=== PATIENT | male | born 1950 | race African-American/Black ===

== ENCOUNTER 2021-06-12 20:30 | Inpatient (IN) | payer MEDICARE, SELFPAY ==
--- NOTE | ~2021-06-12 | XR_ITS ---
EXAMINATION: XR chest 1V portable INDICATION: Shortness of breath TECHNIQUE: Portable AP chest at 2120 hours COMPARISON: 08/28/2003 FINDINGS: There is a large bore right internal jugular catheter with its tip ending in the right atri um. Cardiomegaly is noted. There is a mild diffuse interstitial pattern. No pleural effusion or pneum othorax is identified. A dual-lead cardiac pacemaker of the left chest wall ends with leads in expect ed locations. IMPRESSION: 1. Cardiomegaly with mild pulmonary edema. Reviewed, dictated and finalized at location [facility]. [employer]
[2021-06-12 20:28] VITALS: BP 116/63; PULSE 86; RESP 16; TEMP 36.4; O2SAT 100
--- NOTE | 2021-06-12 21:15 | ECG_ITS ---
Measurements Intervals [place] Rate: 81 P: 55 MT: 237 QRS: -13 QRSD: 133 T: 178 QT: 438 QTc: 509 Interpretive Statements SINUS RHYTHM WITH FIRST DEGREE AV BLOCK FREQUENT VENTRICULAR PREMATURE COMPLEXES LEFT BUNDLE BRANCH BLOCK ABNORMAL ECG Electronically Signed On 06-13-2021 6:20:33 CIRCULAR SAW OPERATOR by Keshawn Felix D.O.
[2021-06-12 21:40] VITALS: BP 122/64; PULSE 81; RESP 19; O2SAT 96
--- NOTE | 2021-06-12 21:41 | PC.NURSE ---
unable to gain access or draw labs, awaiting general house worker for assistance. provider aware.
[2021-06-12 21:55] VITALS: PULSE 81
[2021-06-12 21:55] LABS: Glucose Point of Care > 500 mg/dl (65-105)
--- NOTE | 2021-06-12 21:58 | PC.NURSE ---
pt not sure of doses when it comes to his medications. pharmacy is closed, pt has no med list with him.
--- NOTE | 2021-06-12 22:37 | ED.GENADULT ---
HPI - General Adult General Chief complaint: Weakness Stated complaint: gen weakness, anemia Time Seen by Provider: 06/12/21 20:47 History of Present Illness HPI narrative: Patient is a 71-year-old gentleman who presents the emergency department with chief complaint of generalized weakness. 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 Patient states that they checked his blood counts told him it was low and he was seen at [facility] yesterday they favio blood work on him and discharged him home. The patient states that today his blood sugars were running high and he is still continued to feel weak. The patient denies chest pain does report that he had some shortness of breath. Related Data Home Medications Medication Instructions Recorded Confirmed amitriptyline 06/12/21 atorvastatin 06/12/21 carvedilol 06/12/21 finasteride mg 06/12/21 furosemide 06/12/21 gabapentin 06/12/21 hydrocodone-acetaminophen 06/12/21 insulin glargine [Lantus U-100 SUBCUT 06/12/21 Insulin] insulin lispro [Humalog KwikPen SUBCUT 06/12/21 Insulin] lisinopril 06/12/21 pantoprazole PO 06/12/21 tamsulosin mg PO 06/12/21 06/12/21 Allergies Allergy/AdvReac Type Severity Reaction Status Date / Time codeine Allergy Unknown Unknown Verified 06/12/21 20:32 Contrast Media Allergy Unknown IVP DYE Uncoded 04/12/09 06:15 CAUSES HIVES AND NAUSEA Review of Systems Review of Systems: A 10 system review of systems was completed on the patient and is negative except for what is stated in the HPI. Nursing and ancillary documentation was reviewed. [facility] Family History Family History Other Diabetes mellitus Hypertension Social History Social History Alcohol intake: current Exam Narrative: GENERAL: Well-appearing, well-nourished, and in no acute distress. HEAD: Normocephalic, atraumatic. EYES: PERRLA and EOMI. ENT: Nares clear, no rhinorrhea or epistaxis. Mucous membranes moist. NECK: Supple. CHEST: Clear to auscultation. No respiratory distress. HEART: Regular rate and rhythm. No murmur heard. Normal peripheral pulses. ABDOMEN: Soft, nontender, nondistended, normal active bowel sounds. EXTREMITIES: Normal range of motion. No edema. SKIN: Warm, dry, no rash. NEURO: No focal deficits. Alert and oriented x3. PSYCH: Normal mood and affect. Course Vital Signs Vital signs: Vital Signs Temperature 36.4 C 06/12/21 20:28 Pulse Rate 86 06/12/21 20:28 Respiratory Rate 16 06/12/21 20:28 Blood Pressure 116/63 06/12/21 20:28 Pulse Oximetry 100 06/12/21 20:28 Temperature 36.4 C 06/12/21 20:28 Pulse Rate 79 06/12/21 23:27 Respiratory Rate 20 06/12/21 23:27 Blood Pressure 107/61 06/12/21 23:27 Pulse Oximetry 98 06/12/21 23:27 Medical Decision Making Vital Signs Vital Signs: Vital Signs Temperature 36.4 C 06/12/21 20:28 Pulse Rate 86 06/12/21 20:28 Respiratory Rate 16 06/12/21 20:28 Blood Pressure 116/63 06/12/21 20:28 Pulse Oximetry 100 06/12/21 20:28 Temperature 36.4 C 06/12/21 20:28 Pulse Rate 79 06/12/21 23:27 Respiratory Rate 20 06/12/21 23:27 Blood Pressure 107/61 06/12/21 23:27 Pulse Oximetry 98 06/12/21 23:27 Lab Data Result diagrams: 06/12/21 22:30 06/12/21 22:30 Labs: Lab Results 06/12/21 06/12/21 06/12/21 Range/Units 21:50 22:30 22:30 WBC 4.6 (4.5-10.0) K/mm3 RBC 2.59 L (4.6-6.20) M/mm3 Hgb 8.2 L (14.0-18.0) g/dL Hct 26.3 L (42.0-52.0) % MCV 101.5 H (80-100) fl MCH 31.7 (26-34) pg MCHC 31.2 L (32-36) g/dl RDW 13.5 (11.5-14.5) % Plt Count 158 (150-375) k/mm3 MPV 10.9 H (7.4-10.4) fl Immature Gran % (Auto) 0.2 (
[2021-06-12 22:46] LABS: Basophils Percent Auto 0.9 % (0.2-1.2); Eosinophils Absolute Auto 0.3 K/mm3 (0-0.3); Eosinophils Percent Auto 5.9 % (0-4.4); Hematocrit 26.3 % (42.0-52.0); Hemoglobin 8.2 g/dL (14.0-18.0); Immature Granulocyte Absolute 0.01 K/mm3 (0.00-0.031); Immature Granulocyte Percent A 0.2 % (0-0.5); Lymphocytes Percent Auto 17.6 % (18.3-44.2); Mean Corpuscular HGB Conc 31.2 g/dl (32-36); Mean Corpuscular Hemoglobin 31.7 pg (26-34); Mean Corpuscular Volume 101.5 fl (80-100); Mean Platelet Volume 10.9 fl (7.4-10.4); Monocytes Absolute Auto 0.3 K/mm3 (0.1-0.6); Monocytes Percent Auto 5.7 % (2.6-8.5); Neutrophils Absolute Auto 3.2 K/mm3 (1.3-6.7); Neutrophils Percent Auto 69.7 % (45.5-73.1); Platelet Count Result 158 k/mm3 (150-375); Red Blood Count 2.59 M/mm3 (4.6-6.20); Red Cell Distribution Width 13.5 % (11.5-14.5); White Blood Count 4.6 K/mm3 (4.5-10.0)
[2021-06-12 23:06] LABS: Alanine Aminotransferase 28 U/L (4-50); Albumin Level 3.7 g/dL (3.5-5.1); Alkaline Phosphatase 262 U/L (38-126); Anion Gap 15 mmol/L (8-16); Aspartate Amino Transferase 33 U/L (17-59); Beta-Hydroxybutyrate/Acetoacetate 0.06 mmol/L (0.02-0.27); Bilirubin,Total 0.3 mg/dL (0.2-1.3); Blood Urea Nitrogen 38 mg/dL (9-20); Calcium 7.3 mg/dL (8.4-10.2); Carbon Dioxide 27 mmol/L (22-30); Chloride 90 mmol/L (98-107); Estimated CRCL calculation 12 ml/min; Estimated Glomerular Filt Rate 14; Potassium 4.2 mmol/L (3.4-5.0); Sodium 132 mmol/L (137-145)
[2021-06-12 23:10] LABS: Glucose 627 mg/dL (65-110)
[2021-06-12] MEDS: INSULIN HUMAN REGULAR (*BKC) 100 UNITS/ML 10 UNITS SUB-Q (23:12)
[2021-06-12 23:27] VITALS: BP 107/61; PULSE 79; RESP 20; O2SAT 98
[2021-06-12 23:41] LABS: NT Pro B Type Natriuretic Pept > 35000 pg/mL (5-100); Troponin I 0.012 ng/mL (0.000-0.034)
[2021-06-13] VITALS (11 sets, daily range): BP systolic 92–118; BP diastolic 54–74; PULSE 67–81; RESP 16–25; TEMP 36.2–36.4; O2SAT 97–100; BMI 28.8
[2021-06-13 01:09] LABS: SARS-CoV-2 RNA PCR Negative
[2021-06-13 01:31] LABS: Hematocrit 23.9 % (42.0-52.0); Hemoglobin 7.5 g/dL (14.0-18.0)
[2021-06-13 05:58] LABS: Glucose Point of Care 191 mg/dl (65-105)
--- NOTE | 2021-06-13 06:01 | PC.NURSE ---
Hospitalist paged in regards to BP MAPs status and AM blood sugar. Dr. Zimmerman TORB 250 NS Bolus at this time.
[2021-06-13] MEDS: SODIUM CHLORIDE 0.9% IV 250 ML 100 ML IV CONT (06:07)
[2021-06-13 06:16] LABS: Hematocrit 27.7 % (42.0-52.0); Hemoglobin 8.7 g/dL (14.0-18.0)
--- NOTE | 2021-06-13 07:19 | PC.NURSE ---
Pt resting at this time. Aware he is waiting for a bed assignment. No complaints at this time.
--- NOTE | 2021-06-13 07:56 | PC.NURSE ---
Pt states he is a , , sunday. Last dialysis sunday06/11/2021. Pt has no complaints at this time.
[2021-06-13 08:44] LABS: Glucose Point of Care 50 mg/dl (65-105)
[2021-06-13] MEDS: DEXTROSE 50% 25 GM/50 ML SYRINGE IV PUSH ×3 (08:48→20:00)
--- NOTE | 2021-06-13 08:51 | PC.NURSE ---
Pt treated per hypoglycemia protocol. Breakfast tray ordered.
[2021-06-13 09:45] LABS: Glucose Point of Care 76 mg/dl (65-105)
--- NOTE | 2021-06-13 09:51 | PC.NURSE ---
Pt alert and oriented x 3, ate 75% off breakfast. No requests at this time.
--- NOTE | 2021-06-13 13:30 | PM.IMHP ---
H&P: HPI History of Present Illness Date/Time: 06/13/21 13:30 Chief Complaint: Weakness. Narrative: This is a 71-year-old male with insulin dependent diabetes, end-stage renal disease on hemodialysis, and hypertension who presented to the emergency department via EMS from home late last evening for evaluation of weakness. He has not felt well for several days with generalized malaise, weakness, and dysuria. Per patient report he had labs drawn while at dialysis yesterday and he was instructed to go to the emergency department due to concerns for anemia. Patient reports that they did blood work in the ER at [facility] and he was discharged home, apparently not requiring a transfusion. Throughout the day yesterday he noticed that his glucose was running above 400 and due to continued weakness he came in for evaluation. Random glucose on arrival last evening was 627 and he was given 10 units of regular insulin at that time. It does not look as though he received his basal insulin last night however this morning his glucose was 191. After breakfast he became hypoglycemic with a glucose of 50 and he has had intermittent episodes of hypoglycemia since that time despite eating breakfast and lunch. He continues to feel relatively weak with dysuria but he has no other specific complaints. He denies fever, chills, sweats, headache, neck ache, sinus congestion, sore throat, chest pain, shortness of breath, cough, nausea, vomiting, and diarrhea. Review of Systems Review of Systems: Twelve systems were reviewed and are negative except for as per HPI. [facility] Past Medical History Medical History (Updated 06/13/21 @ 21:56 by Maddie Huffman PA-C) Benign prostatic hyperplasia Chronic anemia Chronic pancreatitis End-stage renal disease on hemodialysis Dialysis days are Sunday, , Sunday. Gastric varices Hyperlipidemia Hypertension Insulin dependent type 2 diabetes mellitus Surgical History Surgical History (Updated 06/13/21 @ 21:50 by Maddie Huffman PA-C) History of back surgery History of laparoscopic cholecystectomy History of sinus surgery Family History Family History Other Diabetes mellitus Hypertension Social History Social History (Updated 06/13/21 @ 21:51 by Maddie Huffman PA-C) Social History: Resides in [place]. He has a helper come to the house 5 days a week. Former smoker. He drink heavily in the past but has not had alcohol for several years. No illicit drug use. Code status: Full code. Meds Home Medications and Allergies Home Medications Medication Instructions Recorded Confirmed Type amitriptyline 25 mg PO DAILY 06/12/21 06/13/21 History atorvastatin 40 mg PO DAILY 06/12/21 06/13/21 History carvedilol 12.5 mg PO DAILY 06/12/21 06/13/21 History finasteride 5 mg PO DAILY 06/12/21 06/13/21 History furosemide 40 mg PO DAILY 06/12/21 06/13/21 History gabapentin 300 mg PO TID 06/12/21 06/13/21 History hydrocodone-acetaminophen 7.5 tablet PO Q6H 06/12/21 06/13/21 History insulin glargine [Lantus U-100 See Rx Instructions .ROUTE .COMPLEX 06/12/21 06/13/21 History Insulin] insulin lispro [Humalog KwikPen See Rx Instructions .ROUTE .COMPLEX 06/12/21 06/13/21 History Insulin] pantoprazole 40 mg PO DAILY 06/12/21 06/13/21 History tamsulosin 0.4 mg PO DAILY 06/12/21 06/13/21 History lisinopril 40 mg PO DAILY 06/13/21 06/13/21 History Allergies Allergy/AdvReac Type Severity Reaction Status Date / Time codeine Allergy Unknown Unknown Verified 06/13/21 05:48 Contrast Media Allergy Unknown IVP DYE Uncoded 06/13/21 05:48 CAUSES HIVES AND NAUSEA Vital Signs Vital Signs - 24 hr 06/12/21 21:40 06/12/21 21:55 06/12/21 23:27 Pulse Rate 81 81 79 Respiratory Rate 19 20 Blood Pressure 122/64 107/61 Pulse Oximetry 96 98 06/13/21 00:01 06/13/21 01:10 06/13/21 02:01 Pulse Rate 77 76 78 Respiratory
[2021-06-13 14:46] LABS: Glucose Point of Care 81 mg/dl (65-105)
--- NOTE | 2021-06-13 15:09 | PC.NURSE ---
CBC rejected by Lab, alteration worker called
--- NOTE | 2021-06-13 16:43 | PC.NURSE ---
ambualted to bathroom with standby assist of 1, gait steady
[2021-06-13 18:42] LABS: Glucose Point of Care 48 mg/dl (65-105)
--- NOTE | 2021-06-13 18:54 | PC.NURSE ---
1838 BS 48, dextrose given and tray, pt A?O x 4
[2021-06-13 19:09] LABS: Glucose Point of Care 53 mg/dl (65-105)
[2021-06-13] MEDS: GLUCOSE ORAL GEL 15 GM OF GLUCSE IN 37.5 GM TUBE PO (19:14)
[2021-06-13 19:48] LABS: Glucose Point of Care 41 mg/dl (65-105)
[2021-06-13] MEDS: DEXTROSE 10% 500 ML 85 ML (20:10)
[2021-06-13 21:13] LABS: Glucose Point of Care 275 mg/dl (65-105)
--- NOTE | 2021-06-13 21:33 | PC.NURSE ---
2110 D10 stopped BS 275
--- NOTE | 2021-06-13 21:36 | PC.NURSE ---
2029 pt refused any more lab draws at this time
--- NOTE | 2021-06-13 22:11 | ADMGEN ---
This patient, Gui Stahl, was admitted to 2 Medical Room 240-. Patient/family oriented to hospital policies and general routines including ID bracelet, bed and alarms, visiting hours, pain management, procedures, bathroom and other care routines, personal items, smoking policy, room service/diet, and visiting hours. Information on how to activate the Rapid Response Team has been discussed. Patient/Family are encouraged to report perceived risks to care and to ask questions if they do not understand what they are told or what they should do.
[2021-06-13 22:16] LABS: Hemoglobin A1C 12.4 % (<5.7)
[2021-06-13 23:23] LABS: Glucose Point of Care 462 mg/dl (65-105)
[2021-06-13] MEDS: INSULIN ASPART (*BKC) 100 UNITS/ML 10 UNITS SUB-Q (23:23)
[2021-06-14] VITALS (9 sets, daily range): BP systolic 104–105; BP diastolic 57–58; PULSE 75–84; RESP 16–18; TEMP 36.4–36.6; O2SAT 97–100
[2021-06-14 01:15] LABS: Add Urine Microscopic? YES; Appearance Urine Turbid (Clear); Bacteria Urine Trace /hpf; Bilirubin Urine Negative (Negative); Blood Urine 3+ (Negative); Budding Yeast Urine Present /hpf; Color Urine Yellow (Yellow); Glucose Urine UA 3+ mg/dL (Negative); Ketones Urine Negative (Negative); Leukocyte Esterase Ur 3+ LEU/UL (Negative); Nitrate Urine Negative (Negative); Protein Urine 2+ mg/dL (Negative); RBC Urine >75 /hpf (0-2); Specific Grav Ur 1.015 (1.001-1.035); Squamous Epithelial Cell Urine Moderate /hpf (Few); Urobilinogen Urine Negative mg/dL (<2.0); WBC Clumps Urine Present /HPF; WBC Urine >75 /hpf
[2021-06-14 02:41] LABS: Glucose Point of Care > 500 mg/dl (65-105)
--- NOTE | 2021-06-14 02:42 | PC.NURSE ---
Dr Zimmerman notified POC accucheck meter reads 522. Order received for 12u novalog, provider does not want lab drawn at this time.
[2021-06-14] MEDS: INSULIN ASPART (*BKC) 100 UNITS/ML 12 UNITS SUB-Q (02:52)
--- NOTE | 2021-06-14 05:10 | PC.NURSE ---
Pt requested to leave hospital immediately. Dr Zimmerman notified and AMA for printed. Pt was again informed he would be leaving AM and he would be responsible for any negative effects as a result of his decision. Pt now states he will wait until he speaks with a doctor before making decision to sign out.
[2021-06-14 05:33] LABS: Glucose Point of Care 219 mg/dl (65-105)
[2021-06-14 08:50] LABS: Glucose Point of Care 86 mg/dl (65-105)
--- NOTE | 2021-06-14 11:02 | PM.IMPN ---
Progress Note: A&P Assessment and Plan (1) Hypoglycemia: Code(s): E16.2 - Hypoglycemia, unspecified Status: Resolved Assessment and Plan: Patient initially came in with a random glucose of over 600 for which he was given subcutaneous insulin, 10 units. Watching patients sugars today @80. (2) Insulin dependent type 2 diabetes mellitus: Code(s): E11.9 - Type 2 diabetes mellitus without complications; Z79.4 - regional intermodal truck driver (current) use of insulin Status: Acute Assessment and Plan: Pt home insulin stopped. Pt is on moderate sliding scale insulin, Accu-Cheks, and hypoglycemic protocol. Adjust insulin dose on dischrage, DM educator consulted. (3) End-stage renal disease on hemodialysis: Code(s): N18.6 - End stage renal disease; Z99.2 - Dependence on renal dialysis Status: Acute Assessment and Plan: Nephrology consulted as patient is due for dialysis today (4) Hypertension: Code(s): I10 - Essential (primary) hypertension Status: Acute Assessment and Plan: Blood pressures were reviewed and they are stable. Antihypertensives will be reviewed and resumed as appropriate. (5) Chronic anemia: Code(s): D64.9 - Anemia, unspecified Status: Acute Assessment and Plan: Hemoglobin greater than 8 without symptomatic anemia. Monitor. (6) Benign prostatic hyperplasia: Code(s): N40.0 - Benign prostatic hyperplasia without lower urinary tract symptoms Status: Acute Assessment and Plan: No acute issues. Continue tamsulosin. (7) Generalized weakness: Code(s): R53.1 - Weakness Status: Acute Assessment and Plan: May very well be related to severe fluctuations in glucose. Pt is unsure of his home insulin. But states he has a home carer who helps him with his DM. His HBaic is 12 however. BC and UC are pending. Troponin was unremarkable on admission. Initiate fall precautions. PT/ OT consulted. Subjective Date/time seen: 06/14/21 11:02 Interval history: 71-year-old male with insulin dependent diabetes, end-stage renal disease on hemodialysis, and hypertension who presented to the emergency department via EMS from home late last evening for evaluation of weakness. Pt admitted for elevated blood sugars of 600 today sugars are better. Pt awaiting to see nephrology and needs dialysis prior to DC. Review of Systems Review of Systems: All systems reviewed & are unremarkable except as noted in HPI and below Exam Const: General: tired appearing and other (chronically ill appearing ); No in distress Nutritional Appearance: overweight Orientation/consciousness: oriented to person HENMT: Head: normal to inspection Resp: Effort & Inspection: no respiratory distress Auscultation: no rhonchi and no wheezes Cardio: Rate: regular rate Rhythm: regular rhythm GI: Inspection: normal to inspection GI Palp: No abdominal tenderness, No Guarding due to palpation present (GI) and No Hepatomegaly present Auscultation: normal bowel sounds Neuro: General: oriented to person Objective Data Vital Signs Vital Signs: Vital Signs - 24 hr 06/13/21 21:54 06/13/21 23:09 06/14/21 00:00 Temperature 36.2 C L 36.4 C Pulse Rate 81 80 Respiratory Rate 18 Blood Pressure 118/58 L Pulse Oximetry 100 06/14/21 04:00 06/14/21 05:27 Temperature 36.4 C Pulse Rate 81 81 Respiratory Rate 16 Blood Pressure 105/57 L Pulse Oximetry 100 Intake/Output Intake/Output: Intake & Output 06/11/21 06/12/21 06/13/21 06/14/21 23:59 23:59 23:59 23:59 Intake Total 750 660 Output Total 100 Balance 750 560 Meds/Results Medications: Active Medications Generic Name Dose Route Start Last Admin Trade Name Freq PRN Reason Stop Dose Admin Dextrose 12.5 gm 06/13/21 00:11 06/13/21 20:00 Dextrose 50% 25 Gm/50 Ml Syringe IV PUSH 12.5 gm PRN PRN Administration Hypoglycemia P
--- NOTE | 2021-06-14 11:05 | PM.CNNEP ---
Assessment and Plan Assessment and plan (1) End stage renal disease: Code(s): N18.6 - End stage renal disease Status: Chronic Assessment and Plan: due for dialysis today however, due limited dialysis nurses, will plan treatment tomorrow will eventually transiton back to his normal T/T/S schedule (2) Generalized weakness: Code(s): R53.1 - Weakness Status: Acute Assessment and Plan: due to fluctuating blood sugars versus infection versus something else follow blood sugars follow culture results (3) Hypertension: Code(s): I10 - Essential (primary) hypertension Status: Chronic Assessment and Plan: well controlled at this time follow trend of hemodyanmics (4) Anemia: Qualifiers: Anemia type: unspecified type Qualified Code(s): D64.9 - Anemia, unspecified Code(s): D64.9 - Anemia, unspecified Status: Chronic Assessment and Plan: due to ESRD Epogen with HD follow trend of H/H (5) Insulin dependent type 2 diabetes mellitus: Code(s): E11.9 - Type 2 diabetes mellitus without complications; Z79.4 - skilled nursing (current) use of insulin Status: Chronic Assessment and Plan: follow accuchecks given fluctuating hypoglycemia and hyperglycemia glycemic control Will continue to follow. History of Present Illness Reason for Consult Consult date: 06/14/21 Reason for consult: end stage renal disease Chief Complaint Chief complaint: Generalized Weakness,Hyperglycemia,Anemia History of Present Illness Narrative: The patient is a 71-year-old male with a past medical history as outlined below who presented to [facility] Emergency room via EMS for further evaluation of weakness. The patient states that he has not felt well for the last several days with symptoms including generalized malaise, weakness, and pain with urination. He apparently had labs done at his outpatient dialysis center the day before admission and was told that he should come to the ER for further evaluation of his anemia on these blood tests. Presumably, his weakness and fatigue were related to this supposed anemia by his outpatient labs. He apparently went to the ER at [facility] where I believe repeat labs were checked and did not indicate any reason for transfusion. He was subsequently discharged home. However, after discharge from [facility] ER, he has noticed his blood sugars running significantly higher than normal and has continued to have issues and problems were for weakness. Because of the persistence of the symptoms, he came to [facility] ER for further evaluation. Workup and evaluation emergency room demonstrated the patient to be hemodynamically stable but a random glucose check was found to be quite elevated at 627. He was given regular insulin for this high glucose reading. He then apparently had issues with hypoglycemia despite adequate oral intake. He gave no other subjective symptoms regard to fevers chills nausea vomiting headache sore throat chest pain or shortness of breath. routine blood test demonstrated labs consistent with his known history of end-stage renal disease and no other critical electrolyte abnormalities. His CBC was unremarkable as well. However, given the persistence of his generalized weakness and in conjunction with his other symptoms, he was admitted the hospital for further evaluation and therapy. Renal consultation was requested due to his end-stage renal disease. The patient normally dialyzes on a Sunday, , Sunday dialysis schedule at [facility] under the care of Dr. Spicer his last dialysis treatment was on Sunday and is due for dialysis today. From a dialysis perspective, he tells me that he does usually quite well with no issues or problems relating to volume overload, hyperkalemia, or persistent shortness of jael
[2021-06-14 11:37] LABS: Glucose Point of Care 135 mg/dl (65-105)
[2021-06-14] MEDS: AMITRIPTYLINE HCL 25 MG TABLET PO (12:00)
[2021-06-14] MEDS: GABAPENTIN 300 MG CAPSULE PO ×2 (14:32→18:32)
[2021-06-14] MEDS: ATORVASTATIN 40 MG TABLET PO (14:32)
[2021-06-14] MEDS: HYDROcodone/acetaminophen (*CRX) 7.5-325 MG TABLET 1 TAB PO ×2 (14:32→18:31)
[2021-06-14 16:55] LABS: Glucose Point of Care 198 mg/dl (65-105)
[2021-06-14 19:01] LABS: Alanine Aminotransferase 32 U/L (4-50); Albumin Level 3.3 g/dL (3.5-5.1); Alkaline Phosphatase 135 U/L (38-126); Anion Gap 14 mmol/L (8-16); Aspartate Amino Transferase 41 U/L (17-59); Bilirubin,Total 0.3 mg/dL (0.2-1.3); Blood Urea Nitrogen 53 mg/dL (9-20); Calcium 6.5 mg/dL (8.4-10.2); Carbon Dioxide 23 mmol/L (22-30); Chloride 93 mmol/L (98-107); Estimated CRCL calculation 9 ml/min; Estimated Glomerular Filt Rate 11; Glucose 304 mg/dL (65-110); Magnesium 1.6 mg/dL (1.6-2.3); Potassium 4.9 mmol/L (3.4-5.0); Sodium 130 mmol/L (137-145)
[2021-06-14 20:21] LABS: Hepatitis B Surface Antigen Negative (Negative)
[2021-06-14 20:39] LABS: Hepatitis B Surface Anti Res Positive
[2021-06-14 21:46] LABS: Thyroid Stimulating Hormone Reflex 0.587 uIU/mL (0.465-4.68)
--- NOTE | 2021-06-14 22:02 | ECHO_ITS ---
Patient Info Name: Gui Stahl Age: 71 years : 1950 Gender: Male Ht: 67 in Wt: 169 lbs BSA: 1.92 m2 HR: 77 bpm BP: 105 / 57 mmHg Technical Quality: Good Exam Date: 06/14/2021 8:33 AM Exam Location: [facility] Patient Status: Outpatient Admit Date: 06/13/2021 Staff Ordering Physician: Maddie Huffman PA-C Tram Inspector: Vahe Prince RDCS, RT Attending Provider: Zoe Zimmerman MD Referring Physician: Nathanael LIM; Exam Type: CA echo doppler color flow Study Info Indications R53.1 - Weakness Complete two-dimensional, color flow and Doppler transthoracic echocardiogram is performed. Strain analysis performed. Summary 1. Complete two-dimensional, color flow and Doppler transthoracic echocardiogram is performed. 2. Left ventricular chamber dimension is severely enlarged. 3. Left ventricular systolic function is severely reduced, estimated at 20-25%. 4. The left ventricular diastolic function is abnormal. 5. E/e' 21 is elevated. 6. Global longitudinal strain is abnormal at -9.5%. 7. Linear artifact in right ventricle suggestive of catheter(s), pacemaker lead(s), or ICD lead(s). 8. Left atrial chamber dimension is moderately enlarged. 9. Right atrial chamber dimension is mildly enlarged. 10. Linear artifact in the right atrium suggestive of catheter(s), pacemaker lead(s), or ICD lead(s). 11. There is mild aortic valve sclerosis. 12. There is mild aortic valve regurgitation. 13. There is mild mitral valve regurgitation. 14. There is moderate to severe tricuspid valve regurgitation. 15. Moderate pulmonary hypertension, estimated pulmonary arterial systolic pressure is 54 mmHg. 16. There is trace pulmonic regurgitation. 17. The aortic root size at the sinus of Valsalva is borderline dilated at 4.0 cm. Left Ventricle E/e' 21 is elevated. Global longitudinal strain is abnormal at -9.5%. Left ventricular chamber dimension is severely enlarged. Left ventricular systolic function is severely reduced, estimated at 20-25%. The left ventricular diastolic function is abnormal. Right Ventricle Right ventricular systolic function is normal and with normal TAPSE 2.7 cm. Linear artifact in right ventricle suggestive of catheter(s), pacemaker lead(s), or ICD lead(s). Right ventricular chamber dimension is normal. Left Atria Left atrial chamber dimension is moderately enlarged. Right Atria Linear artifact in the right atrium suggestive of catheter(s), pacemaker lead(s), or ICD lead(s). Right atrial chamber dimension is mildly enlarged. Aortic Valve The aortic valve is trileaflet. There is mild aortic valve sclerosis. There is no aortic valve stenosis. There is mild aortic valve regurgitation. Pulmonic Valve There is trace pulmonic regurgitation. Mitral Valve There is no mitral valve stenosis. There is mild mitral valve regurgitation. Tricuspid Valve There is moderate to severe tricuspid valve regurgitation. Moderate pulmonary hypertension, estimated pulmonary arterial systolic pressure is 54 mmHg. Pericardium/Pleural There is no pericardial effusion. Inferior Vena Cava Normal inferior vena cava with >50% collapse upon inspiration consistent with normal right atrial pressure, 5 mmHg. Aorta The aortic root size at the sinus of Valsalva is borderline dilated at 4.0 cm. Left Ventricular Outflow Tract Name V
[2021-06-15] VITALS (22 sets, daily range): BP systolic 93–112; BP diastolic 48–64; PULSE 68–85; RESP 14–16; TEMP 35.6–36.8; O2SAT 98; BMI 28.7
[2021-06-15] MEDS: HYDROcodone/acetaminophen (*CRX) 7.5-325 MG TABLET 1 TAB PO ×3 (00:17→11:59)
[2021-06-15 02:55] LABS: Glucose Point of Care 359 mg/dl (65-105)
[2021-06-15 07:57] LABS: Glucose Point of Care 300 mg/dl (65-105)
[2021-06-15] MEDS: INSULIN ASPART (*BKC) 100 UNITS/ML SUB-Q (08:05)
[2021-06-15] MEDS: EPOETIN ALFA-EPBX 10,000 UNITS/ML VIAL 10000 UNITS IV PUSH (08:35)
[2021-06-15] MEDS: SODIUM CHLORIDE 0.9% IV 1,000 ML 999 ML IV CONT (08:36)
[2021-06-15 08:45] LABS: Basophils Absolute Auto 0.1 K/mm3 (0.0-0.1); Basophils Percent Auto 1.3 % (0.2-1.2); Eosinophils Absolute Auto 0.3 K/mm3 (0-0.3); Eosinophils Percent Auto 6.6 % (0-4.4); Hematocrit 23.9 % (42.0-52.0); Hemoglobin 7.5 g/dL (14.0-18.0); Immature Granulocyte Absolute 0.01 K/mm3 (0.00-0.031); Immature Granulocyte Percent A 0.3 % (0-0.5); Lymphocytes Percent Auto 30.6 % (18.3-44.2); Mean Corpuscular HGB Conc 31.4 g/dl (32-36); Mean Corpuscular Hemoglobin 31.9 pg (26-34); Mean Corpuscular Volume 101.7 fl (80-100); Mean Platelet Volume 10.5 fl (7.4-10.4); Monocytes Absolute Auto 0.2 K/mm3 (0.1-0.6); Monocytes Percent Auto 6.1 % (2.6-8.5); Neutrophils Absolute Auto 2.2 K/mm3 (1.3-6.7); Neutrophils Percent Auto 55.1 % (45.5-73.1); Platelet Count Result 144 k/mm3 (150-375); Red Blood Count 2.35 M/mm3 (4.6-6.20); Red Cell Distribution Width 13.8 % (11.5-14.5); White Blood Count 3.9 K/mm3 (4.5-10.0)
[2021-06-15 08:52] LABS: Alanine Aminotransferase 31 U/L (4-50); Albumin Level 3.2 g/dL (3.5-5.1); Alkaline Phosphatase 141 U/L (38-126); Anion Gap 13 mmol/L (8-16); Aspartate Amino Transferase 43 U/L (17-59); Bilirubin,Total 0.2 mg/dL (0.2-1.3); Blood Urea Nitrogen 54 mg/dL (9-20); Calcium 6.4 mg/dL (8.4-10.2); Carbon Dioxide 26 mmol/L (22-30); Chloride 92 mmol/L (98-107); Estimated CRCL calculation 8 ml/min; Estimated Glomerular Filt Rate 9; Glucose 343 mg/dL (65-110); Magnesium 1.6 mg/dL (1.6-2.3); Potassium 4.8 mmol/L (3.4-5.0); Sodium 131 mmol/L (137-145)
--- NOTE | 2021-06-15 10:13 | PM.PNNEP ---
Progress Note: A&P Assessment and Plan (1) End stage renal disease: Code(s): N18.6 - End stage renal disease Status: Chronic Assessment and Plan: HD today will eventually transition back to his normal T/T/S schedule follow electrolytes, volume status, and clearance (2) Generalized weakness: Code(s): R53.1 - Weakness Status: Acute Assessment and Plan: due to fluctuating blood sugars versus infection versus something else follow blood sugars follow culture results (3) Hypertension: Code(s): I10 - Essential (primary) hypertension Status: Chronic Assessment and Plan: well controlled at this time follow trend of hemodyanmics (4) Anemia: Qualifiers: Anemia type: unspecified type Qualified Code(s): D64.9 - Anemia, unspecified Code(s): D64.9 - Anemia, unspecified Status: Chronic Assessment and Plan: due to ESRD Epogen with HD follow trend of H/H (5) Insulin dependent type 2 diabetes mellitus: Code(s): E11.9 - Type 2 diabetes mellitus without complications; Z79.4 - terminal make up operator (current) use of insulin Status: Chronic Assessment and Plan: follow accuchecks given fluctuating hypoglycemia and hyperglycemia glycemic control Will continue to follow. Subjective Date/time seen: 06/15/21 10:13 Patient tolerating treatment reasonably well at the time of my visit(seen on HD at ~ 10:00AM); no new issues or concerns voiced; no apparent distress currently; no issue/events overnight or earlier this AM. Exam Narrative: General: WD/WN male in NAD Heart: normal S1 and S2; no rub Lungs: clear to auscultation Abdomen: soft, nontender, nondistended, positive bowel sounds Extremities: no cyanosis or clubbing; no edema Skin: warm and dry Objective Data Vital Signs Vital Signs: Vital Signs Temp Pulse Resp BP Pulse Ox 06/15/21 10:00 68 104/53 L 06/15/21 09:45 71 111/56 L 06/15/21 09:30 71 98/52 L 06/15/21 09:15 71 101/52 L 06/15/21 09:00 71 101/55 L 06/15/21 08:45 70 103/52 L 06/15/21 08:30 71 103/52 L 06/15/21 08:25 73 100/64 06/15/21 08:20 36.8 C 74 16 102/62 06/15/21 06:00 36.4 C 72 14 94/51 L 98 06/15/21 04:00 74 06/15/21 00:00 76 06/14/21 22:00 36.5 C 76 18 104/58 L 97 06/14/21 20:00 75 18 97 06/14/21 16:00 82 06/14/21 13:55 36.6 C 80 18 104/57 L 97 06/14/21 12:00 80 Intake/Output Intake/Output: Intake & Output 06/12/21 06/13/21 06/14/21 06/15/21 23:59 23:59 23:59 23:59 Intake Total 750 1440 490 Output Total 100 100 Balance 750 1340 390 Meds/Results Medications: Active Medications Generic Name Dose Route Start Last Admin Trade Name Freq PRN Reason Stop Dose Admin Hydrocodone Bitart/Acetaminophen 1 tab 06/14/21 12:00 06/15/21 06:25 Hydrocodone/Acetaminophen (*Crx) 7.5-325 Mg Tablet PO 1 tab Q6HR YOKASTA Administration Amitriptyline HCl 25 mg 06/14/21 12:00 06/14/21 12:00 Amitriptyline Hcl 25 Mg Tablet PO 25 mg DAILY YOKASTA Administration Atorvastatin Calcium 40 mg 06/14/21 12:00 06/14/21 14:32 Atorvastatin 40 Mg Tablet PO 40 mg DAILY YOKASTA Administration Carvedilol 12.5 mg 06/15/21 09:00 Carvedilol 12.5 Mg Tablet PO DAILY YOKASTA Dextrose 12.5 gm 06/13/21 00:11 06/13/21 20:00 Dextrose 50% 25 Gm/50 Ml Syringe IV PUSH 12.5 gm PRN PRN Administration Hypoglycemia Protocol Finasteride 5 mg 06/15/21 09:00 Finasteride 5 Mg Tablet PO DAILY YOKASTA Furosemide 40 mg 06/15/21 09:00 Furosemide 40 Mg Tablet PO DAILY YOKASTA Gabapentin 300 mg 06/14/21 13:00 06/14/21 18:32 Gabapentin 300 Mg Capsule PO 300 mg TID YOKASTA Administration Glucagon 1 mg 06/13/21 00:11 Glucagon For Inj 1 Mg Vial IM PRN PRN Hypoglycemia Protocol Glucose 15 gm 06/13/21 00:11 06/13/21 19:14 Gl
--- NOTE | 2021-06-15 10:45 | PM.DS ---
DS: Admitting Diagnosis Discharge Date 06/15/21 1045 Admitting Diagnosis Hyperglycemia DS: Discharge Diagnosis Discharge Diagnosis (1) Hypoglycemia: Code(s): E16.2 - Hypoglycemia, unspecified Status: Resolved Assessment and Plan: Patient initially came in with a random glucose of over 600 for which he was given subcutaneous insulin, 10 units. Watching patients sugars today @80. Glucose is back up in the 300s Insulin orders changed (2) Insulin dependent type 2 diabetes mellitus: Code(s): E11.9 - Type 2 diabetes mellitus without complications; Z79.4 - manager long term care (current) use of insulin Status: Chronic Assessment and Plan: Pt home insulin stopped. Pt is on moderate sliding scale insulin, Accu-Cheks, and hypoglycemic protocol. Adjust insulin dose on dischrage, DM educator consulted. (3) End-stage renal disease on hemodialysis: Code(s): N18.6 - End stage renal disease; Z99.2 - Dependence on renal dialysis Status: Acute Assessment and Plan: Nephrology consulted as patient is due for dialysis today (4) Hypertension: Code(s): I10 - Essential (primary) hypertension Status: Chronic Assessment and Plan: Blood pressures were reviewed and they are stable. Antihypertensives will be reviewed and resumed as appropriate. (5) Chronic anemia: Code(s): D64.9 - Anemia, unspecified Status: Acute Assessment and Plan: Hemoglobin greater than 8 without symptomatic anemia. Monitor. Recieved epoetin today in dialysis Chronic seconday to end stage renal failure (6) Benign prostatic hyperplasia: Code(s): N40.0 - Benign prostatic hyperplasia without lower urinary tract symptoms Status: Acute Assessment and Plan: No acute issues. Continue tamsulosin. (7) Generalized weakness: Code(s): R53.1 - Weakness Status: Acute Assessment and Plan: May very well be related to severe fluctuations in glucose. Pt is unsure of his home insulin. But states he has a home carer who helps him with his DM. His HBaic is 12 however. BC and UC are pending. Troponin was unremarkable on admission. Initiate fall precautions. PT/ OT consulted. DS: Summary Hospital Course Hospital Course: Patient is 71-year-old male with a past medical history of hyperlipidemia, diabetes, hypertension, end-stage renal disease who presented to the ED with complaints of weakness and abnormal blood work. Patient stated that prior to coming in he was instructed to the ED because labs on him to be anemic. He was also checked his blood sugar at home and noticed that his she glucose was greater than 400. Upon arrival patient had a glucose greater than 600. Patient was given insulin which then caused his blood sugar to go down to the 50s. After further review it looks as if the patient does not really take insulin at home however clinical trial educator was consulted and gave recommendations og 12 units of lantus and 4 units of aspart with meals. Patient is feeling okay and is ready to go home. Patient denies chest pain, shortness of breath, nausea, vomiting, diarrhea, constipation. Labs are stable and vital signs. Status at Discharge Functional status at discharge: independent ambulation Overall status at discharge: patient is progressing back to baseline Time Spent with Patient Time attestation: Total time spent providing and/or coordinating discharge services: 48 minutes Time spent: Greater than 30 minutes Specific discharge activities: Diagnostic testing, chart review, developing a treatment plan, education, care coordination documentation, physical exam, result review Exam Const: General: cooperative, tired appearing and other (chronically ill appearing ) Nutritional Appearance: well nourished Orientation/consciousness: oriented to person, oriented to place and oriented to time Limitations: no limitations HENMT: Head: normal to inspect
[2021-06-15] MEDS: FINASTERIDE 5 MG TABLET PO (11:52)
[2021-06-15] MEDS: PANTOPRAZOLE 40 MG TABLET PO (11:52)
[2021-06-15] MEDS: GABAPENTIN 300 MG CAPSULE PO (11:52)
[2021-06-15] MEDS: ATORVASTATIN 40 MG TABLET PO (11:52)
[2021-06-15] MEDS: TAMSULOSIN HCL 0.4 MG CAPSULE PO (11:52)
[2021-06-15] MEDS: FUROSEMIDE 40 MG TABLET PO (11:52)
[2021-06-15] MEDS: AMITRIPTYLINE HCL 25 MG TABLET PO (11:53)
[2021-06-15] MEDS: carvediloL 12.5 MG TABLET PO (11:53)
[2021-06-15 11:56] LABS: Glucose Point of Care 158 mg/dl (65-105)
== END 2021-06-15 15:10 | disposition home or self-care (01) | DRG 637 ==
LOC: ANHED 06-13 01:10 → ANH3MEDSUR 06-13 02:48 → ANH2MED 06-13 17:07
PROVIDERS: Internal Medicine Nephrology; Physician Assistant; Admitting Provider Internal Medicine; Emergency Provider Emergency Medicine; PCP Internal Medicine; Visit Provider Nurse Practitioner
DX: E11.65 Type 2 diabetes mellitus with hyperglycemia (principal); N18.6 End stage renal disease; I12.0 Hypertensive chronic kidney disease with stage 5 chronic kidney disease or end stage renal disease; E11.649 Type 2 diabetes mellitus with hypoglycemia without coma; E11.22 Type 2 diabetes mellitus with diabetic chronic kidney disease; D63.1 Anemia in chronic kidney disease; N40.0 Benign prostatic hyperplasia without lower urinary tract symptoms; Z20.822 Contact with and (suspected) exposure to COVID-19; E78.5 Hyperlipidemia, unspecified; Z99.2 Dependence on renal dialysis; Z79.4 Long term (current) use of insulin; Z90.49 Acquired absence of other specified parts of digestive tract; Z87.891 Personal history of nicotine dependence
CPT/HCPCS: 36415; 71045; 80053; 81001; 82010; 82948; 83036; 83735; 83880; 84443; 84484; 85014; 85018; 85025; 86706; 86850; 86900; 86901; 87040; 87086; 87088; 87106; 87340; 93005; 93306; 96361; 96374; 96376; 99285; A9270; C9803; G0257; G0378; J1644; J1815; J7030; J7050; Q5105; U0003; U0005

== ENCOUNTER 2021-10-29 10:34 | Inpatient (IN) | payer MEDICARE, MEDICAID, SELFPAY ==
[2021-10-29] VITALS (11 sets, daily range): BP systolic 98–172; BP diastolic 56–95; PULSE 67–86; RESP 14–20; TEMP 36.6–37.2; O2SAT 93–100
--- NOTE | ~2021-10-29 | XR_ITS ---
XR chest 1V portable 10/29/2021 11:07 Indication: Ascites. Low oxygen saturation. Procedure: AP portable chest Comparison: 06/12/2021 Findings: Stable cardiomegaly. Pacemaker leads are stable. Improving interstitial edema. Possible sma ll effusion. No pneumothorax. No acute osseous abnormality. Impression: 1: Cardiomegaly with improving interstitial edema. Reviewed, dictated and finalized at location A. Impression: 1: Cardiomegaly with improving interstitial edema.
--- NOTE | ~2021-10-29 | CT_ITS ---
EXAMINATION: CT abdomen pelvis wo con DATE: 10/29/2021 11:32 INDICATION: Left lower quadrant pain, nausea and vomiting TECHNIQUE: Computed tomography (CT) of the abdomen and pelvis was performed without intravenous contr ast. The dose-length product was 1106.33 mGy-cm. Automated exposure control and iterative reconstruct ion technique were employed. COMPARISON: CT dated 11/09/2015. FINDINGS: There is diffuse subcutaneous edema, small pleural effusions and mesenteric edema, consiste nt with anasarca. Small amount of ascites. Dependent atelectasis. Cardiomegaly. Status post cholecystectomy. The liver, spleen, adrenal glands a nd left kidney are unremarkable. There is nonobstructing right renal stone. There is a low-density le carito in the right kidney, most likely benign cysts. There is retroperitoneal lymphadenopathy, likely reactive. There are pancreatic calcifications, consistent with chronic pancreatitis. There is thicken ing of the sigmoid colon with mild surrounding inflammation. Lytic/sclerotic abnormalities of L2 and L4 with superior endplate compression fracture of L4. These f indings are compatible with metastatic disease. IMPRESSION: 1. Mild thickening of the sigmoid colon with possible subtle surrounding inflammation, although this is difficult to evaluate due to mesenteric edema. Findings suspicious for diverticulitis. Cannot excl ude underlying malignancy, particularly in view of the lumbar vertebral abnormalities. Recommend GI c onsultation. 2: Mixed lytic/sclerotic appearance to L2 and L4, consistent with metastatic disease with subtle age- indeterminate superior endplate compression deformity of L4. Correlate for history of malignancy. 3: Chronic pancreatitis. 4: Anasarca. Reviewed, dictated and finalized at location A. IMPRESSION: 1. Mild thickening of the sigmoid colon with possible subtle surrounding inflam mation, although this is difficult to evaluate due to mesenteric edema. Finding s suspicious for diverticulitis. Cannot exclude underlying malignancy, particul kaiden in view of the lumbar vertebral abnormalities. Recommend GI consultation. 2: Mixed lytic/sclerotic appearance to L2 and L4, consistent with metastatic di sease with subtle age-indeterminate superior endplate compression deformity of L4. Correlate for history of malignancy. 3: Chronic pancreatitis. 4: Anasarca.
[2021-10-29] MEDS: ONDANSETRON INJ 4 MG/2 ML VIAL IV PUSH (11:13)
[2021-10-29 11:15] LABS: Basophils Percent Auto 0.5 % (0.2-1.2); Eosinophils Absolute Auto 0.1 K/mm3 (0-0.3); Eosinophils Percent Auto 3.3 % (0-4.4); Hematocrit 32.6 % (42.0-52.0); Immature Granulocyte Absolute 0.01 K/mm3 (0.00-0.031); Immature Granulocyte Percent A 0.3 % (0-0.5); Lymphocytes Absolute Auto 0.55 K/mm3 (0.9-3.2); Lymphocytes Percent Auto 14.1 % (18.3-44.2); Mean Corpuscular HGB Conc 30.7 g/dl (32-36); Mean Corpuscular Hemoglobin 30.7 pg (26-34); Monocytes Absolute Auto 0.3 K/mm3 (0.1-0.6); Monocytes Percent Auto 7.2 % (2.6-8.5); Neutrophils Absolute Auto 2.9 K/mm3 (1.3-6.7); Neutrophils Percent Auto 74.6 % (45.5-73.1); Platelet Count Result 143 k/mm3 (150-375); Red Blood Count 3.26 M/mm3 (4.6-6.20); Red Cell Distribution Width 16.4 % (11.5-14.5); White Blood Count 3.9 K/mm3 (4.5-10.0)
[2021-10-29 11:28] LABS: Alanine Aminotransferase 19 U/L (6-50); Albumin Level 3.5 g/dL (3.5-5.1); Alkaline Phosphatase 130 U/L (38-126); Anion Gap 9 mmol/L (8-16); Aspartate Amino Transferase 19 U/L (17-59); Bilirubin,Total 0.6 mg/dL (0.2-1.3); Blood Urea Nitrogen 26 mg/dL (9-20); Calcium 8.1 mg/dL (8.4-10.2); Carbon Dioxide 30 mmol/L (22-30); Chloride 91 mmol/L (98-107); Estimated CRCL calculation 14 ml/min; Estimated Glomerular Filt Rate 16; Sodium 130 mmol/L (137-145)
[2021-10-29 11:38] LABS: Glucose 641 mg/dL (65-110)
--- NOTE | 2021-10-29 12:11 | PC.NURSE ---
Patient unable to produce urine at this time for the UA.
--- NOTE | 2021-10-29 12:20 | ED.RECABL ---
HPI - Recheck/Abnormal Lab/Rx General Chief Complaint: Recheck/Abnormal Lab/Rx Stated Complaint: generalized weakness, missed diaylsis Time Seen by Provider: 10/29/21 10:36 History of Present Illness HPI narrative: 71-year-old male with history of ESRD on dialysis presents with 2 days of nausea, vomiting, and left lower quadrant pain, he last went to dialysis 2 days ago, says that he has been feeling sick since they took the tubes out of my chest yesterday. Denies any fevers, chills, cough. Does still make urine, denies any dysuria. Related Data Home Medications Medication Instructions Recorded Confirmed amitriptyline 25 mg tablet 25 mg PO DAILY 06/12/21 06/13/21 atorvastatin 40 mg tablet 40 mg PO DAILY 06/12/21 06/13/21 carvedilol 12.5 mg tablet 12.5 mg PO DAILY 06/12/21 06/13/21 finasteride 5 mg tablet 5 mg PO DAILY 06/12/21 06/13/21 furosemide 40 mg tablet 40 mg PO DAILY 06/12/21 06/13/21 gabapentin 300 mg capsule 300 mg PO TID 06/12/21 06/13/21 hydrocodone 7.5 mg-acetaminophen 7.5 tablet PO Q6H 06/12/21 06/13/21 325 mg tablet pantoprazole 40 mg tablet,delayed 40 mg PO DAILY 06/12/21 06/13/21 release tamsulosin 0.4 mg capsule 0.4 mg PO DAILY 06/12/21 06/13/21 lisinopril 40 mg tablet 40 mg PO DAILY 06/13/21 06/13/21 Allergies Allergy/AdvReac Type Severity Reaction Status Date / Time codeine Allergy Unknown Unknown Verified 10/29/21 11:44 Contrast Media Allergy Unknown IVP DYE Uncoded 10/29/21 11:44 CAUSES HIVES AND NAUSEA Review of Systems Review of Systems: CONST: No fever. HEENT: No sore throat C/V: No chest pain RESP: No cough GI: Reports abdominal pain, nausea : No dysuria. M/S: No joint pain. SKIN: No rash. NEURO: [No headache or focal numbness or weakness] PSYCH: [No depression] [facility] Past Medical History Medical History Benign prostatic hyperplasia Chronic anemia Chronic pancreatitis End-stage renal disease on hemodialysis Dialysis days are Sunday, , Sunday. Gastric varices Hyperlipidemia Hypertension Insulin dependent type 2 diabetes mellitus Surgical History Surgical History History of back surgery History of laparoscopic cholecystectomy History of sinus surgery Family History Family History Father Hypertension Diabetes mellitus Mother Hypertension Diabetes mellitus Social History Social History Social History: Resides in [place]. He has a helper come to the house 5 days a week. Former smoker. He drink heavily in the past but has not had alcohol for several years. No illicit drug use. Code status: Full code. Smoking status: Never smoker Alcohol intake: never Substance use: never Spiritual care concerns: No Exam Narrative: EXAMINATION OF ORGAN SYSTEMS/BODY AREAS: Constitutional: Vital signs per nursing GENERAL:[No acute distress, non-toxic appearing.] HEAD: Normal with no signs of head trauma. EYES: EOMI, conjunctiva normal ENT: Hearing grossly intact LUNGS: Nonlabored breathing. HEART: [Regular rate and rhythm] ABD: [Soft], [tender to palpation] left lower quadrant EXT: Normal range of motion SKIN: [No rashes or lesions.] NEURO: [Alert and oriented x 3. No gross focal sensory or strength deficits.] PSYCH: Normal affect Course Vital Signs Vital signs: Vital Signs Temperature 97.8 F 10/29/21 10:36 Pulse Rate 86 10/29/21 10:36 Respiratory Rate 20 10/29/21 10:36 Blood Pressure 113/62 10/29/21 10:36 Pulse Oximetry 95 10/29/21 10:36 Oxygen Delivery Room Air 10/29/21 10:36 Temperature 97.8 F 10/29/21 10:36 Pulse Rate 83 10/29/21 12:05 Respiratory Rate 15 10/29/21 12:05 Blood Pressure 172/95 H 10/29/21 12:05 Pulse Oximetry 97 10/29/21 12:05 Oxygen Delivery Nasal Cannula
[2021-10-29] MEDS: AMPICILLIN SULB 3 GM/NS 100 ML 3 GM/100 ML VIAL IVPB (12:50)
--- NOTE | 2021-10-29 13:15 | PC.NURSE ---
RN 3rd request that patients BS be checked and then they will take report on the patient.
[2021-10-29] MEDS: INSULIN HUMAN REGULAR (*BKC) 100 UNITS/ML 10 UNITS IV PUSH (13:32)
--- NOTE | 2021-10-29 13:39 | ECG_ITS ---
Measurements Intervals [place] Rate: 78 P: 48 UT: 247 QRS: -45 QRSD: 150 T: 148 QT: 450 QTc: 514 Interpretive Statements SINUS RHYTHM WITH FIRST DEGREE AV BLOCK MARKED LEFT AXIS DEVIATION [QRS AXIS < -30] LEFT BUNDLE BRANCH BLOCK [120+ ms QRS DURATION, 80+ ms Q/S IN V1/V2, 85+ ms R IN I/aVL/V5/V6] COMPARED TO ECG 06/12/2021 21:48:07 LEFT-AXIS DEVIATION NOW PRESENT Electronically Signed On 10-30-2021 10:59:56 CDT by Russell Feldman M.D.
--- NOTE | 2021-10-29 14:00 | PC.NURSE ---
Patient's BS >500 at this time, attempted to draw blood, without success. Issues with phlebotomy obtaining patient's blood work. RN on 3rd still not comfortable with patient due to BS issues.
[2021-10-29 14:02] LABS: Glucose Point of Care > 500 mg/dl (65-105)
[2021-10-29 14:48] LABS: Glucose Point of Care > 500 mg/dl (65-105)
[2021-10-29 15:38] LABS: Device NASAL CANNULA; Fractional Inspired Oxygen 28 %; HCO3 VBG 29.3 mEq/l (24.0-30.0); PCO2 VBG 62.1 mmHg (42.0-48.0); PO2 VBG 29.3 mmHg (35.0-45.0); pH VBG 7.291 (7.300-7.400)
--- NOTE | 2021-10-29 16:19 | PC.NURSE ---
Phlebotomy unsuccessful with drawing patient's blood. Dr. Saldana aware of patient and difficulty with obtaining home medications.
--- NOTE | 2021-10-29 16:42 | PC.NURSE ---
Bird Trapper states that patient can go to room 344 at this time. 3rd floor charge and RN aware patient is coming to the floor.
[2021-10-29 16:52] LABS: Appearance Urine Clear (Clear); Bilirubin Urine 1+ (Negative); Blood Urine 1+ (Negative); Color Urine Yellow (Yellow); Glucose Urine UA 3+ mg/dL (Negative); Ketones Urine Negative (Negative); Leukocyte Esterase Ur 1+ LEU/UL (Negative); Nitrate Urine Negative (Negative); Protein Urine 1+ mg/dL (Negative); Specific Grav Ur 1.015 (1.001-1.035); Urobilinogen Urine 0.2 mg/dL (<2.0)
[2021-10-29 16:54] LABS: Hemoglobin A1C > 14.0 % (<5.7)
[2021-10-29 17:01] LABS: Glucose Point of Care > 500 mg/dl (65-105)
[2021-10-29 17:03] LABS: Add Urine Microscopic? YES; Bacteria Urine Trace /hpf; Budding Yeast Urine Present /hpf; Mucus Urine Rare /lpf; Squamous Epithelial Cell Urine Occasional /hpf (Few); WBC Clumps Urine Present /HPF; WBC Urine >75 /hpf
--- NOTE | 2021-10-29 17:08 | ADMGEN ---
This patient, Gui Stahl, was admitted to Medical Room 344-01. Patient/family oriented to hospital policies and general routines including ID bracelet, bed and alarms, visiting hours, pain management, procedures, bathroom and other care routines, personal items, smoking policy, room service/diet, and visiting hours. Information on how to activate the Rapid Response Team has been discussed. Patient/Family are encouraged to report perceived risks to care and to ask questions if they do not understand what they are told or what they should do.
--- NOTE | 2021-10-29 17:10 | PC.NURSE ---
Called Dr. Saldana and informed patient blood sugar is 579. Dr. Saldana stated he would be on third floor to see patient, no new orders given.
--- NOTE | 2021-10-29 18:00 | PM.IMHP ---
H&P: HPI History of Present Illness Date/Time: 10/29/21 18:00 Chief Complaint: abdominal pain and hyperglycemia Narrative: patient is 71-year-old male with history of end-stage renal disease on hemodialysis Sunday and Sunday and insulin-dependent diabetes patient presented emergency department with complaint left lower quadrant pain suspicious of diverticulitis patient had a CT scan of abdomen does show patient has mild thickening of the sigmoid colon with possible subtle surrounding inflammation, although this is difficult to evaluate due to mesenteric edema. Findings suspicious for diverticulitis. Cannot exclude underlying malignancy, particularly in view of the lumbar vertebral abnormalities. Recommend GI consultation. started the patient on Zosyn and consulted GI, upon arrival patient blood sugar was 600 patient is a poor historian, patient also had a similar presentation during his admission in May his blood sugar was 600 he was given NovoLog 10 units however patient blood dropped and 50s, I have placed the patient on low sliding scale and will continue to monitor, Dr. Johnson is been consulted as patient missed the dialysis today, will continue to monitor and further recommendation to follow. patient admitted as observation status Review of Systems Review of Systems: CONST: No fever. HEENT: No sore throat C/V: No chest pain RESP: No cough GI: Reports abdominal pain, nausea : No dysuria. M/S: No joint pain. SKIN: No rash. NEURO: [No headache or focal numbness or weakness] PSYCH: [No depression] [facility] Past Medical History Medical History Benign prostatic hyperplasia Chronic anemia Chronic pancreatitis End-stage renal disease on hemodialysis Dialysis days are Sunday, , Sunday. Gastric varices Hyperlipidemia Hypertension Insulin dependent type 2 diabetes mellitus Surgical History Surgical History History of back surgery History of laparoscopic cholecystectomy History of sinus surgery Family History Family History Father Hypertension Diabetes mellitus Mother Hypertension Diabetes mellitus Social History Social History Social History: Resides in [place]. He has a helper come to the house 5 days a week. Former smoker. He drink heavily in the past but has not had alcohol for several years. No illicit drug use. Code status: Full code. Smoking status: Former smoker Tobacco type: cigarettes Alcohol intake: former Substance use: former Substance use type: does not use Spiritual care concerns: No Meds Home Medications and Allergies Home Medications Medication Instructions Recorded Confirmed Type amitriptyline 25 mg tablet 25 mg PO DAILY 06/12/21 10/29/21 History atorvastatin 40 mg tablet 40 mg PO DAILY 06/12/21 10/29/21 History carvedilol 12.5 mg tablet 12.5 mg PO BID 06/12/21 10/29/21 History finasteride 5 mg tablet 5 mg PO DAILY 06/12/21 10/29/21 History furosemide 40 mg tablet 40 mg PO DAILY 06/12/21 10/29/21 History gabapentin 300 mg capsule 300 mg PO TID 06/12/21 10/29/21 History hydrocodone 7.5 mg-acetaminophen 7.5 tablet PO Q6H 06/12/21 10/29/21 History 325 mg tablet pantoprazole 40 mg tablet,delayed 40 mg PO DAILY 06/12/21 10/29/21 History release tamsulosin 0.4 mg capsule 0.4 mg PO DAILY 06/12/21 10/29/21 History insulin lispro 100 unit/mL 4 unit (0.04 mL) subcut AC #15 mL 06/15/21 10/29/21 Rx subcutaneous pen (Humalog KwikPen (U-100) Insulin) lisinopril 10 mg tablet 10 mg PO DAILY 10/29/21 10/29/21 History valacyclovir 1 gram tablet 1 mg PO DAILY 10/29/21 10/29/21 History (Valtrex) Allergies Allergy/AdvReac Type Severity Reaction Status Date / Time codeine Allergy Unknown Unknown Verified 10/29/21 11:44 Contrast Media Allerg
[2021-10-29 20:46] LABS: Glucose Point of Care > 500 mg/dl (65-105)
[2021-10-29] MEDS: INSULIN ASPART (*BKC) 100 UNITS/ML 18 UNITS SUB-Q (21:21)
[2021-10-29] MEDS: carvediloL 12.5 MG TABLET PO (21:25)
[2021-10-29] MEDS: HEPARIN SODIUM 5,000 UNITS/ML VIAL 5000 UNITS SUB-Q (21:26)
[2021-10-30] VITALS (12 sets, daily range): BP systolic 92–104; BP diastolic 38–55; PULSE 72–84; RESP 14–20; TEMP 36.5–36.8; O2SAT 90–94
[2021-10-30 01:14] LABS: Glucose Point of Care 224 mg/dl (65-105)
[2021-10-30] MEDS: HYDROcodone/acetaminophen (*CRX) 5-325 MG TABLET 5 TAB PO ×2 (05:58→17:53)
[2021-10-30 05:59] LABS: Glucose Point of Care 41 mg/dl (65-105)
[2021-10-30 06:26] LABS: Glucose Point of Care 46 mg/dl (65-105)
--- NOTE | 2021-10-30 06:30 | PC.NURSE ---
During morning accuchecks, patients blood sugar came back at 41. After rechecking to make sure it wasn't a faulty reading, glucose was 46. Nurse gave orange juice with sugar packets and apple juice. Attempted to give amp of D50 and oral glucose gel, but patient refused. States he knows what he's doing and there's nothing I have that he hasn't had. He just needs georgie crackers. Patient alert and oriented and no changes in presentation. Georgie crackers given. Will recheck sugar.
[2021-10-30 07:39] LABS: Glucose Point of Care 140 mg/dl (65-105)
[2021-10-30] MEDS: FINASTERIDE 5 MG TABLET PO (09:11)
[2021-10-30] MEDS: carvediloL 12.5 MG TABLET PO ×2 (09:11→21:13)
[2021-10-30] MEDS: valACYclovir HCL 500 MG TABLET 1000 MG PO (09:11)
[2021-10-30] MEDS: AMITRIPTYLINE HCL 25 MG TABLET PO (09:11)
[2021-10-30] MEDS: PANTOPRAZOLE 40 MG TABLET PO (09:11)
[2021-10-30] MEDS: TAMSULOSIN HCL 0.4 MG CAPSULE PO (09:11)
[2021-10-30] MEDS: FUROSEMIDE 40 MG TABLET PO (09:12)
[2021-10-30] MEDS: ATORVASTATIN 40 MG TABLET PO (09:12)
[2021-10-30] MEDS: GABAPENTIN 300 MG CAPSULE PO ×3 (09:12→16:51)
--- NOTE | 2021-10-30 09:51 | PM.CNNEP ---
Assessment and Plan Additional Plan 1. Gui has end-stage renal disease. He has dialysis on Tuesdays and Saturdays. He did not go to dialysis yesterday. He does have significant swelling but this is chronic for him. He does not have any shortness of breath. He is not on oxygen. His potassium is okay. We will do dialysis tomorrow and then get him back on schedule on Sunday. 2. The patient has diverticulitis. He is getting antibiotics for this. 3. The patient has a past history of hypertension. This has been better, for the wrong reason, because of his tricuspid regurgitation. The dialysis unit struggles to keep his swelling off because his low blood pressure prevent significant fluid removal during treatments. 4. Patient has anemia. Hemoglobin is target. Will continue Epogen on dialysis. 5. The patient has renal osteodystrophy. Will check a phosphorus level in the morning. He is not on binders according to his home medicine list. Will see how his phosphorus looks pale 6. The patient has diabetes. His sugar was 641 on admission has come down gradually. Earlier this morning it was only 41 so he had meds for this. 7. Sodium level is low. This is likely due to the high sugar. History of Present Illness Reason for Consult Consult date: 10/30/21 Chief Complaint Chief complaint: diverticulitis History of Present Illness Narrative: Gui is a very pleasant 71-year-old gentleman who has multiple medical problems including end-stage renal disease on dialysis 3 times a week, diabetes, anemia of chronic kidney disease, renal osteodystrophy, tricuspid regurgitation, hyperlipidemia, gastric varices, chronic pancreatitis, and BPH. The patient said he was doing well [place] until about 2 weeks ago when he started having left lower quadrant abdominal discomfort. This gradually worsened over the 2 weeks. It was not worsened or improved by anything including eating or bowel movements. It was accompanied by some diarrhea and some nausea but no vomiting. He had no blood from anywhere. The patient came to the emergency room with these complaints and was evaluated. CT scan showed diverticulitis (rule out cancer? ). The patient did not go to dialysis yesterday. Renal consultation was requested because of end-stage renal disease. The patient does have chronic low blood pressure now because of his tricuspid regurgitation. He does have significant swelling in his legs and in his left arm where his dialysis access is. They have trouble getting fluid off in dialysis because of his low blood pressure. Patient has a long history of hypertension which has improved with his tricuspid regurg. Patient has a long history of diabetes. These to issues are what caused his kidney disease. The patient has anemia and gets Epogen for this. Review of Systems Constitutional: Constitutional: Reports no additional constitutional complaints Eyes: Eyes: Reports no additional eye complaints ENT: Reports system reviewed and no additional complaints, except as documented Cardiovascular: Cardiovascular: Reports no additional cardiovascular complaints Respiratory: Respiratory: Reports no additional respiratory complaints Gastrointestinal: Gastrointestinal: Reports no additional gastrointestinal complaints Genitourinary: Genitourinary: Reports no additional male genitourinary complaints Musculoskeletal: Musculoskeletal: Reports no additional musculoskeletal complaints Integumentary/Breasts: Skin/Breast: Reports system reviewed and no additional complaints, except as docu Neurologic: Reports system reviewed and no additional complaints, except as documented Psychiatric: Psychiatric: Reports no additional psychiatric complaints Endocrine: Endocrine: Reports no additional endocrine complaints [facility] Past Medical History Medical History Benign prostatic
--- NOTE | 2021-10-30 11:02 | WPDGICN ---
Assessment and Plan Assessment and plan (1) Diverticulitis: Code(s): K57.92 - Diverticulitis of intestine, part unspecified, without perforation or abscess without bleeding Status: Acute Assessment and Plan: He has been started on antibiotics. He is already on her regular diet, apparently tolerating it well. I would probably have started him on liquids but will see how he does with his renal diet. I told the patient he will need a colonoscopy in about 4 weeks (2) End stage renal disease: Code(s): N18.6 - End stage renal disease Status: Chronic Assessment and Plan: He missed dialysis yesterday. Nephrology has been consulted. (3) Insulin dependent type 2 diabetes mellitus: Code(s): E11.9 - Type 2 diabetes mellitus without complications; Z79.4 - half-way (current) use of insulin Status: Chronic Assessment and Plan: Diabetes needs to be controlled. His glucose level was 641. (4) Chronic anemia: Code(s): D64.9 - Anemia, unspecified Status: Acute Assessment and Plan: he has had be chronically anemic. This is likely due to his end-stage renal disease. Actually now his blood counts are not bad. hemoglobin is 10, hematocrit 32 GI Consult Note Consult date/time: 10/30/21 11:02 HPI: Gui Stahl is a 71 year old male Who presented to the emergency room yesterday with complaints of left lower abdominal pain. He states that this began about a week ago. CT scan showed evidence of sigmoid diverticulitis. He thinks he has had a colonoscopy in the past. He does not know if he has had diverticulitis in the past. He is drowsy and taciturn . He denies weight loss nausea or vomiting. He does not believe that he has had a fever. He was found to be markedly hyperglycemic. He is also a dialysis patient and missed his dialysis yesterday. Review of Systems Review of Systems: All systems reviewed & are unremarkable except as noted in HPI and below PMFSH Past Medical History Medical History Benign prostatic hyperplasia Chronic anemia Chronic pancreatitis End-stage renal disease on hemodialysis Dialysis days are Sunday, , Sunday. Gastric varices Hyperlipidemia Hypertension Insulin dependent type 2 diabetes mellitus Surgical History Surgical History History of back surgery History of laparoscopic cholecystectomy History of sinus surgery Family History Family History Father Hypertension Diabetes mellitus Mother Hypertension Diabetes mellitus Social History Social History Social History: Resides in [place]. He has a helper come to the house 5 days a week. Former smoker. He drink heavily in the past but has not had alcohol for several years. No illicit drug use. Code status: Full code. Smoking status: Former smoker Tobacco type: cigarettes Alcohol intake: former Substance use: former Substance use type: does not use Spiritual care concerns: No Meds Home Medications and Allergies Home Medications Medication Instructions Recorded Confirmed Type amitriptyline 25 mg tablet 25 mg PO DAILY 06/12/21 10/29/21 History atorvastatin 40 mg tablet 40 mg PO DAILY 06/12/21 10/29/21 History carvedilol 12.5 mg tablet 12.5 mg PO BID 06/12/21 10/29/21 History finasteride 5 mg tablet 5 mg PO DAILY 06/12/21 10/29/21 History furosemide 40 mg tablet 40 mg PO DAILY 06/12/21 10/29/21 History gabapentin 300 mg capsule 300 mg PO TID 06/12/21 10/29/21 History hydrocodone 7.5 mg-acetaminophen 7.5 tablet PO Q6H 06/12/21 10/29/21 History 325 mg tablet pantoprazole 40 mg tablet,delayed 40 mg PO DAILY 06/12/21 10/29/21 History release tamsulosin 0.4 mg capsule 0.4 mg PO DAILY 06/12/21 10/29/21 History insulin l
[2021-10-30] MEDS: INSULIN ASPART (*BKC) 100 UNITS/ML SUB-Q ×2 (11:52)
[2021-10-30 11:53] LABS: Glucose Point of Care 253 mg/dl (65-105)
--- NOTE | 2021-10-30 13:39 | PM.IMPN ---
Progress Note: A&P Assessment and Plan (1) Diverticulitis: Code(s): K57.92 - Diverticulitis of intestine, part unspecified, without perforation or abscess without bleeding Status: Acute Assessment and Plan: patient is 71-year-old male with history of end-stage renal disease on hemodialysis Sunday and Sunday and insulin-dependent diabetes patient presented emergency department with complaint left lower quadrant pain suspicious of diverticulitis patient had a CT scan of abdomen does show patient has mild thickening of the sigmoid colon with possible subtle surrounding inflammation, although this is difficult to evaluate due to mesenteric edema. Findings suspicious for diverticulitis. Cannot exclude underlying malignancy, particularly in view of the lumbar vertebral abnormalities. Recommend GI consultation. started the patient on Zosyn and consulted GI, upon arrival patient blood sugar was 600 patient is a poor historian, patient also had a similar presentation during his admission in May his blood sugar was 600 he was given NovoLog 10 units however patient blood dropped and 50s, I have placed the patient on low sliding scale and will continue to monitor, Dr. Johnson is been consulted as patient missed the dialysis today, will continue to monitor and further recommendation to follow. 10/30/2021 interval history: today patient states abdominal pain is better and he is tolerating his renal diet denies any nausea or vomiting fever or chills, patient seen by GI agrees with the plan recommended patient will need colonoscopy in 4 weeks, patient did drop his blood sugar this morning and was treated, will continue to monitor patient with sliding scale, patient seen by obstetric anaesthetist patient normally gets dialysis on Sunday and Sunday, patient missed the dialysis last Sunday schedule to have dialysis tomorrow. patient admitted as observation status (2) End stage renal disease: Code(s): N18.6 - End stage renal disease Status: Chronic Assessment and Plan: patient with end-stage kidney disease on hemodialysis Sunday, and Sunday, patient with a dialysis today, however his potassium is close to normal and BUN and creatinine a close to his baseline, patient be seen by Dr. Johnson and further recommendation to follow (3) Generalized weakness: Code(s): R53.1 - Weakness Status: Acute Assessment and Plan: most likely secondary to chronic pain and dialysis (4) Insulin dependent type 2 diabetes mellitus: Code(s): E11.9 - Type 2 diabetes mellitus without complications; Z79.4 - exterminator (current) use of insulin Status: Chronic Assessment and Plan: patient is a poor historian with history of brittle diabetes he presented with a blood sugar of 600 patient was given 10 units of NovoLog and emergency depart, patient had a similar presentation May any drop blood sugar to 50, will monitor the patient with a low sliding scale with meals and at bedtime and further recommendation to follow. Subjective Date/time seen: 10/30/21 13:39 patient is 71-year-old male with history of end-stage renal disease on hemodialysis Sunday and Sunday and insulin-dependent diabetes patient presented emergency department with complaint left lower quadrant pain suspicious of diverticulitis patient had a CT scan of abdomen does show patient has mild thickening of the sigmoid colon with possible subtle surrounding inflammation, although this is difficult to evaluate due to mesenteric edema. Findings suspicious for diverticulitis. Cannot exclude underlying malignancy, particularly in view of the lumbar vertebral abnormalities. Recommend GI consultation. started the patient on Zosyn and consulted GI, upon arrival patient blood sugar was 600 patient is a poor historian, patient also had a similar presentation during his admission in May his blood sugar was 600 he was given
[2021-10-30 16:30] LABS: Glucose Point of Care 133 mg/dl (65-105)
[2021-10-30] MEDS: HEPARIN SODIUM 5,000 UNITS/ML VIAL 5000 UNITS SUB-Q (21:13)
[2021-10-30] MEDS: LOPERAMIDE HCL 2 MG CAPSULE 4 MG PO (21:14)
[2021-10-30 21:24] LABS: Glucose Point of Care 194 mg/dl (65-105)
[2021-10-31] VITALS (21 sets, daily range): BP systolic 96–167; BP diastolic 38–82; PULSE 70–90; RESP 18–20; TEMP 36.6–37; O2SAT 90–92
[2021-10-31 06:12] LABS: Hematocrit 30.7 % (42.0-52.0); Hemoglobin 9.7 g/dL (14.0-18.0); Mean Corpuscular HGB Conc 31.6 g/dl (32-36); Mean Corpuscular Volume 98.1 fl (80-100); Platelet Count Result 139 k/mm3 (150-375); Red Blood Count 3.13 M/mm3 (4.6-6.20); Red Cell Distribution Width 16.3 % (11.5-14.5); White Blood Count 3.8 K/mm3 (4.5-10.0)
[2021-10-31 06:21] LABS: Albumin Level 2.8 g/dL (3.5-5.1); Anion Gap 10 mmol/L (8-16); Blood Urea Nitrogen 34 mg/dL (9-20); Calcium 7.3 mg/dL (8.4-10.2); Carbon Dioxide 27 mmol/L (22-30); Chloride 95 mmol/L (98-107); Estimated CRCL calculation 10 ml/min; Estimated Glomerular Filt Rate 11; Glucose 322 mg/dL (65-110); Magnesium 1.8 mg/dL (1.6-2.3); Phosphorus 6.6 mg/dL (2.5-4.5); Potassium 3.3 mmol/L (3.4-5.0); Sodium 132 mmol/L (137-145)
[2021-10-31] MEDS: INSULIN ASPART (*BKC) 100 UNITS/ML SUB-Q ×3 (08:34→15:47)
--- NOTE | 2021-10-31 15:17 | PM.PNNEP ---
Progress Note: A&P Additional Plan 1. Gui has end-stage renal disease. He has dialysis on Tuesdays and Saturdays. He is on dialysis today because he skips Sunday. Will continue dialysis tomorrow. He does have significant swelling but this is chronic for him. He does not have any shortness of breath. We are removing fluid to try to get rid of the swelling. His potassium is okay. Finished dialysis today and get him back on schedule tomorrow.. 2. The patient has diverticulitis. He is getting antibiotics for this. 3. The patient has a past history of hypertension. His blood pressure is up and down here, with a systolic between 130 and 160. 4. Patient has anemia. Hemoglobin is target. Will continue Epogen on dialysis. 5. The patient has renal osteodystrophy. Will check a phosphorus level in the morning. He is not on binders according to his home medicine list. Will see how his phosphorus looks pale 6. The patient has diabetes. His sugar was 641 on admission And this is down gradually. 7. Sodium level is low. This is likely due to the high sugar. Subjective Date/time seen: 10/31/21 15:17 Interval history: patient feels about the same. He still has some abdominal discomfort in the left lower quadrant. He is tolerating clear liquids. He is on dialysis and tolerating it well. Blood pressure is a bit high and were taking about 4L off. He was seen at 2:00 p.m. Review of Systems Cardiovascular: Cardiovascular: Reports no additional cardiovascular complaints Respiratory: Respiratory: Reports no additional respiratory complaints Gastrointestinal: Gastrointestinal: Reports no additional gastrointestinal complaints Genitourinary: Genitourinary: Reports no additional male genitourinary complaints Exam Narrative: WDWN in NAD skin no rash head ncat lungs clear cor reg no rub abd BS+ but hypoactive. Left lower quadrant tenderness. ext no edema. Objective Data Vital Signs Vital Signs: Vital Signs - 24 hr 10/30/21 16:00 10/30/21 21:13 10/30/21 20:00 Temperature Pulse Rate 73 78 84 Respiratory Rate Blood Pressure Pulse Oximetry Oxygen Delivery 10/30/21 20:00 10/30/21 22:00 10/30/21 22:59 Temperature 36.5 C Pulse Rate 78 78 Respiratory Rate 14 20 Blood Pressure 92/38 L Pulse Oximetry 92 90 93 Oxygen Delivery Room Air Room Air 10/31/21 00:00 10/31/21 04:00 10/31/21 06:00 Temperature 36.7 C Pulse Rate 70 74 76 Respiratory Rate 20 Blood Pressure 103/47 L Pulse Oximetry 90 Oxygen Delivery 10/31/21 08:00 10/31/21 10:04 10/31/21 12:00 Temperature Pulse Rate 76 76 Respiratory Rate Blood Pressure Pulse Oximetry Oxygen Delivery Room Air 10/31/21 11:33 10/31/21 11:42 10/31/21 12:00 Temperature 36.6 C Pulse Rate 74 75 90 Respiratory Rate 18 Blood Pressure 152/64 H 146/67 H 165/81 H Pulse Oximetry Oxygen Delivery 10/31/21 12:20 10/31/21 12:40 10/31/21 13:00 Temperature Pulse Rate 71 70 70 Respiratory Rate Blood Pressure 150/48 H 115/59 L 159/64 H Pulse Oximetry Oxygen Delivery 10/31/21 13:20 10/31/21 13:40 10/31/21 14:00 Temperature Pulse Rate 75 75 78 Respiratory Rate Blood Pressure 137/38 L 167/63 H 132/58 L Pulse Oximetry Oxygen Delivery 10/31/21 14:20 10/31/21 14:40 Temperature Pulse Rate 75 84 Respiratory Rate Blood Pressure 149/82 H 125/55 L Pulse Oximetry Oxygen Delivery Intake/Output Intake/Output: Intake & Output 10/28/21 10/29/21 10/30/21 10/31/21 23:59 23:59 23:59 23:59 Intake Total 390 850 560 Output Total 0 Balance 390 850 560 Meds/Results Medications: Active Medications Generic Name Dose Route Start Last Admin Trade Name Freq PRN Reason Stop Dose Admin Hydrocodone Bitart/Acetaminophen 5 tab 10/29/21 17:40 10/30/21 17:53 Hydrocodone/Acetaminophen (*Crx) 5-325 Mg Tablet PO 1 tab
[2021-10-31] MEDS: FINASTERIDE 5 MG TABLET PO (15:39)
[2021-10-31] MEDS: FUROSEMIDE 40 MG TABLET PO (15:39)
[2021-10-31] MEDS: ATORVASTATIN 40 MG TABLET PO (15:40)
[2021-10-31] MEDS: AMITRIPTYLINE HCL 25 MG TABLET PO (15:40)
[2021-10-31] MEDS: TAMSULOSIN HCL 0.4 MG CAPSULE PO (15:40)
[2021-10-31] MEDS: carvediloL 12.5 MG TABLET PO ×2 (15:40→20:50)
[2021-10-31] MEDS: GABAPENTIN 300 MG CAPSULE PO (15:41)
[2021-10-31 15:49] LABS: Glucose Point of Care 98 mg/dl (65-105)
--- NOTE | 2021-10-31 16:24 | PM.IMPN ---
Progress Note: A&P Assessment and Plan (1) Diverticulitis: Code(s): K57.92 - Diverticulitis of intestine, part unspecified, without perforation or abscess without bleeding Status: Acute Assessment and Plan: patient is 71-year-old male with history of end-stage renal disease on hemodialysis Sunday and Sunday and insulin-dependent diabetes patient presented emergency department with complaint left lower quadrant pain suspicious of diverticulitis patient had a CT scan of abdomen does show patient has mild thickening of the sigmoid colon with possible subtle surrounding inflammation, although this is difficult to evaluate due to mesenteric edema. Findings suspicious for diverticulitis. Cannot exclude underlying malignancy, particularly in view of the lumbar vertebral abnormalities. Recommend GI consultation. started the patient on Zosyn and consulted GI, upon arrival patient blood sugar was 600 patient is a poor historian, patient also had a similar presentation during his admission in May his blood sugar was 600 he was given NovoLog 10 units however patient blood dropped and 50s, I have placed the patient on low sliding scale and will continue to monitor, Dr. Johnson is been consulted as patient missed the dialysis today, will continue to monitor and further recommendation to follow. 10/30/2021 interval history: today patient states abdominal pain is better and he is tolerating his renal diet denies any nausea or vomiting fever or chills, patient seen by GI agrees with the plan recommended patient will need colonoscopy in 4 weeks, patient did drop his blood sugar this morning and was treated, will continue to monitor patient with sliding scale, patient seen by beef breaker patient normally gets dialysis on Sunday and Sunday, patient missed the dialysis last Sunday schedule to have dialysis tomorrow. 10/31/2021 interval history: today patient states abdominal pain is better and he is tolerating his clear liquid denies any nausea or vomiting fever or chills, patient seen by GI agrees with the plan, recommended patient will need colonoscopy in 4 weeks, patient his blood sugar this morning close to normal and was treated, will continue to monitor patient with sliding scale, patient seen by beef breaker patient normally gets dialysis on Sunday and Sunday, patient missed the dialysis last Sunday schedule to have dialysis later today will continue to monitor will masses diet as tolerated. patient admitted as observation status (2) End stage renal disease: Code(s): N18.6 - End stage renal disease Status: Chronic Assessment and Plan: patient with end-stage kidney disease on hemodialysis Sunday, and Sunday, patient with a dialysis today, however his potassium is close to normal and BUN and creatinine a close to his baseline, patient be seen by Dr. Johnson and further recommendation to follow (3) Generalized weakness: Code(s): R53.1 - Weakness Status: Acute Assessment and Plan: most likely secondary to chronic pain and dialysis (4) Insulin dependent type 2 diabetes mellitus: Code(s): E11.9 - Type 2 diabetes mellitus without complications; Z79.4 - teleradiologist (current) use of insulin Status: Chronic Assessment and Plan: patient is a poor historian with history of brittle diabetes he presented with a blood sugar of 600 patient was given 10 units of NovoLog and emergency depart, patient had a similar presentation [place] any drop blood sugar to 50, will monitor the patient with a low sliding scale with meals and at bedtime and further recommendation to follow. Subjective Date/time seen: 10/31/21 16:24 10/31/2021 interval history: today patient states abdominal pain is better and he is tolerating his clear liquid denies any nausea or vomiting fever or chills, patient seen by GI agrees with the plan, recommended patient will need c
[2021-10-31 20:57] LABS: Glucose Point of Care 322 mg/dl (65-105)
[2021-11-01] VITALS (24 sets, daily range): BP systolic 95–119; BP diastolic 47–95; PULSE 16–85; RESP 14–18; TEMP 36.4–37.1; O2SAT 95
[2021-11-01 05:56] LABS: Hematocrit 31.7 % (42.0-52.0); Hemoglobin 9.9 g/dL (14.0-18.0); Immature Platelet Fraction Pct 4.8 % (0.9-11.2); Mean Corpuscular HGB Conc 31.2 g/dl (32-36); Mean Corpuscular Hemoglobin 30.9 pg (26-34); Mean Corpuscular Volume 99.1 fl (80-100); Mean Platelet Volume 10.8 fl (7.4-10.4); Platelet Count Result 145 k/mm3 (150-375); Red Cell Distribution Width 15.9 % (11.5-14.5); White Blood Count 3.4 K/mm3 (4.5-10.0)
[2021-11-01 06:05] LABS: Albumin Level 3.1 g/dL (3.5-5.1); Anion Gap 8 mmol/L (8-16); Blood Urea Nitrogen 24 mg/dL (9-20); Calcium 7.1 mg/dL (8.4-10.2); Carbon Dioxide 29 mmol/L (22-30); Chloride 96 mmol/L (98-107); Estimated CRCL calculation 13 ml/min; Estimated Glomerular Filt Rate 15; Glucose 363 mg/dL (65-110); Phosphorus 5.1 mg/dL (2.5-4.5); Potassium 3.7 mmol/L (3.4-5.0); Sodium 133 mmol/L (137-145)
[2021-11-01 07:18] LABS: Glucose Point of Care 454 mg/dl (65-105)
[2021-11-01] MEDS: INSULIN ASPART (*BKC) 100 UNITS/ML SUB-Q ×2 (07:49→16:55)
[2021-11-01] MEDS: FINASTERIDE 5 MG TABLET PO (09:15)
[2021-11-01] MEDS: FUROSEMIDE 40 MG TABLET PO (09:15)
[2021-11-01] MEDS: TAMSULOSIN HCL 0.4 MG CAPSULE PO (09:15)
[2021-11-01] MEDS: carvediloL 12.5 MG TABLET PO ×2 (09:15→20:36)
[2021-11-01] MEDS: AMITRIPTYLINE HCL 25 MG TABLET PO (09:15)
[2021-11-01] MEDS: ATORVASTATIN 40 MG TABLET PO (09:15)
[2021-11-01] MEDS: GABAPENTIN 300 MG CAPSULE PO ×2 (09:16→16:59)
[2021-11-01] MEDS: valACYclovir HCL 500 MG TABLET 1000 MG PO (09:16)
[2021-11-01] MEDS: PANTOPRAZOLE 40 MG TABLET PO (09:16)
[2021-11-01] MEDS: HYDROcodone/acetaminophen (*CRX) 5-325 MG TABLET 5 TAB PO (09:28)
[2021-11-01 12:41] LABS: Hepatitis B Surface Anti Res Positive
[2021-11-01 12:54] LABS: Hepatitis B Surface Antigen Negative (Negative)
--- NOTE | 2021-11-01 15:07 | PM.PNNEP ---
Progress Note: A&P Additional Plan 1. Gui has end-stage renal disease. He has dialysis on Tuesdays and Saturdays. he is back on schedule for dialysis. Will get his next treatment on . 2. The patient has diverticulitis. He is getting antibiotics for this. He seems to be improving clinically. 3. The patient has a past history of hypertension. Systolic ranging from 98-130 4. Patient has anemia. Hemoglobin is barely low at 9.9. Will continue Epogen on dialysis. 5. The patient has renal osteodystrophy. Will check a phosphorus level in the morning. He is not on binders according to his home medicine list. Will see how his phosphorus looks pale 6. The patient has diabetes. His sugar was 641 on admission And this is down gradually. 7. Sodium level is low. This is likely due to the high sugar. It corrects to normal when accounting for the sugar. Subjective Date/time seen: 11/01/21 15:07 Interval history: patient feels about the same. his belly pain is better. He is tolerating p.o.. No nausea or vomiting. He is breathing okay he is on dialysis and tolerating well. He was seen at 2:25 p.m. Exam Narrative: WDWN in NAD skin no rash or subcu nodules head ncat lungs clear bilaterally cor reg no rub abd BS+ but hypoactive. Left lower quadrant tenderness. ext no edema. Objective Data Vital Signs Vital Signs: Vital Signs - 24 hr 10/31/21 15:17 10/31/21 15:20 10/31/21 16:00 Temperature 36.6 C Pulse Rate 87 86 86 Respiratory Rate 18 Blood Pressure 120/48 L 149/63 H Pulse Oximetry Oxygen Delivery 10/31/21 19:56 10/31/21 20:50 10/31/21 20:00 Temperature 36.6 C Pulse Rate 75 74 76 Respiratory Rate 18 Blood Pressure 96/56 L Pulse Oximetry 92 Oxygen Delivery 10/31/21 20:00 11/01/21 00:00 11/01/21 04:00 Temperature Pulse Rate 74 69 69 Respiratory Rate 18 Blood Pressure Pulse Oximetry 92 Oxygen Delivery Room Air 11/01/21 05:07 11/01/21 08:00 11/01/21 08:00 Temperature 37.1 C Pulse Rate 68 74 Respiratory Rate 18 Blood Pressure 95/47 L Pulse Oximetry 95 Oxygen Delivery Room Air 11/01/21 12:00 11/01/21 10:37 11/01/21 13:00 Temperature 36.7 C Pulse Rate 65 16 L 64 Respiratory Rate 16 Blood Pressure 105/52 L 100/52 L 105/64 Pulse Oximetry Oxygen Delivery 11/01/21 13:20 11/01/21 13:40 11/01/21 14:00 Temperature Pulse Rate 80 63 65 Respiratory Rate Blood Pressure 99/62 L 110/57 L 100/56 L Pulse Oximetry Oxygen Delivery 11/01/21 14:20 11/01/21 12:20 11/01/21 11:40 Temperature Pulse Rate 79 85 64 Respiratory Rate Blood Pressure 103/60 119/95 H 116/71 Pulse Oximetry Oxygen Delivery 11/01/21 10:50 11/01/21 12:40 11/01/21 11:00 Temperature Pulse Rate 74 64 64 Respiratory Rate Blood Pressure 100/58 L 105/61 113/54 L Pulse Oximetry Oxygen Delivery 11/01/21 11:20 11/01/21 12:00 Temperature Pulse Rate 67 65 Respiratory Rate Blood Pressure 109/52 L Pulse Oximetry Oxygen Delivery Intake/Output Intake/Output: Intake & Output 10/29/21 10/30/21 10/31/21 11/01/21 23:59 23:59 23:59 23:59 Intake Total 937 795 2256 360 Output Total 4000 Balance 390 850 -2930 360 Meds/Results Medications: Active Medications Generic Name Dose Route Start Last Admin Trade Name Freq PRN Reason Stop Dose Admin Hydrocodone Bitart/Acetaminophen 5 tab 10/29/21 17:40 11/01/21 09:28 Hydrocodone/Acetaminophen (*Crx) 5-325 Mg Tablet PO 1 tab Q6H PRN Administration Pain Amitriptyline HCl 25 mg 10/30/21 09:00 11/01/21 09:15 Amitriptyline Hcl 25 Mg Tablet PO 25 mg DAILY YOKASTA Administration Atorvastatin Calcium 40 mg 10/30/21 09:00 11/01/21 09:15 Atorvastatin 40 Mg Tablet PO 40 mg DAILY YOKASTA Administration Carvedilol 12.5 mg 10/29/21 21:00 11/01/21 09:15 Carvedilol 12.5 Mg Tablet PO 12.5 m
[2021-11-01 15:10] LABS: Glucose Point of Care 224 mg/dl (65-105)
--- NOTE | 2021-11-01 16:14 | PM.IMPN ---
Progress Note: A&P Assessment and Plan (1) Diverticulitis: Code(s): K57.92 - Diverticulitis of intestine, part unspecified, without perforation or abscess without bleeding Status: Acute Assessment and Plan: patient is 71-year-old male with history of end-stage renal disease on hemodialysis Sunday and Sunday and insulin-dependent diabetes patient presented emergency department with complaint left lower quadrant pain suspicious of diverticulitis patient had a CT scan of abdomen does show patient has mild thickening of the sigmoid colon with possible subtle surrounding inflammation, although this is difficult to evaluate due to mesenteric edema. Findings suspicious for diverticulitis. Cannot exclude underlying malignancy, particularly in view of the lumbar vertebral abnormalities. Recommend GI consultation. started the patient on Zosyn and consulted GI, upon arrival patient blood sugar was 600 patient is a poor historian, patient also had a similar presentation during his admission in May his blood sugar was 600 he was given NovoLog 10 units however patient blood dropped and 50s, I have placed the patient on low sliding scale and will continue to monitor, Dr. Johnson is been consulted as patient missed the dialysis today, will continue to monitor and further recommendation to follow. 10/30/2021 interval history: today patient states abdominal pain is better and he is tolerating his renal diet denies any nausea or vomiting fever or chills, patient seen by GI agrees with the plan recommended patient will need colonoscopy in 4 weeks, patient did drop his blood sugar this morning and was treated, will continue to monitor patient with sliding scale, patient seen by tool radial drill press set up operator patient normally gets dialysis on Sunday and Sunday, patient missed the dialysis last Sunday schedule to have dialysis tomorrow. 10/31/2021 interval history: today patient states abdominal pain is better and he is tolerating his clear liquid denies any nausea or vomiting fever or chills, patient seen by GI agrees with the plan, recommended patient will need colonoscopy in 4 weeks, patient his blood sugar this morning close to normal and was treated, will continue to monitor patient with sliding scale, patient seen by tool radial drill press set up operator patient normally gets dialysis on Sunday and Sunday, patient missed the dialysis last Sunday schedule to have dialysis later today will continue to monitor will masses diet as tolerated. 11/01/2021 interval history: patient states abdominal pain is better and he was tolerating his clear liquid denies any nausea or vomiting fever or chills, patient seen by GI agrees with the plan, however patient was insistent to advance diet patient was placed on clear liquid and symptoms worsen abdominal pain and nausea, patient is now has agreed to go back on clear liquid will continue to monitor, GI recommended patient will need colonoscopy in 4 weeks, patient his blood sugar this morning close to normal and was treated, will continue to monitor patient with sliding scale, patient seen by tool radial drill press set up operator patient normally gets dialysis on Sunday and Sunday, patient missed the dialysis last Sunday patient had dialysis yesterday and again schedule to have dialysis later today will continue to monitor will advance diet as tolerated. patient admitted as observation status (2) End stage renal disease: Code(s): N18.6 - End stage renal disease Status: Chronic Assessment and Plan: patient with end-stage kidney disease on hemodialysis Sunday, and Sunday, patient with a dialysis today, however his potassium is close to normal and BUN and creatinine a close to his baseline, patient be seen by Dr. Johnson and further recommendation to follow (3) Generalized weakness: Code(s): R53.1 - Weakness Status: Acute Assessment and Plan: most likely secondary to assistant offset press operator
[2021-11-01 16:33] LABS: Glucose Point of Care 236 mg/dl (65-105)
[2021-11-01] MEDS: CIPROFLOXACIN 500 MG TAB PO (20:36)
[2021-11-01 20:41] LABS: Glucose Point of Care 305 mg/dl (65-105)
[2021-11-02] VITALS (10 sets, daily range): BP systolic 91–101; BP diastolic 47–53; PULSE 60–88; RESP 16–18; TEMP 36.3–36.6; O2SAT 91–94
[2021-11-02 05:41] LABS: Hematocrit 33.2 % (42.0-52.0); Hemoglobin 10.3 g/dL (14.0-18.0); Mean Corpuscular Hemoglobin 30.6 pg (26-34); Mean Corpuscular Volume 98.5 fl (80-100); Mean Platelet Volume 10.3 fl (7.4-10.4); Platelet Count Result 145 k/mm3 (150-375); Red Blood Count 3.37 M/mm3 (4.6-6.20); Red Cell Distribution Width 15.7 % (11.5-14.5); White Blood Count 3.2 K/mm3 (4.5-10.0)
[2021-11-02 05:52] LABS: Albumin Level 2.8 g/dL (3.5-5.1); Anion Gap 6 mmol/L (8-16); Blood Urea Nitrogen 18 mg/dL (9-20); Carbon Dioxide 31 mmol/L (22-30); Chloride 95 mmol/L (98-107); Estimated CRCL calculation 16 ml/min; Estimated Glomerular Filt Rate 18; Glucose 262 mg/dL (65-110); Phosphorus 4.7 mg/dL (2.5-4.5); Potassium 3.4 mmol/L (3.4-5.0); Sodium 132 mmol/L (137-145)
[2021-11-02 07:51] LABS: Glucose Point of Care 297 mg/dl (65-105)
[2021-11-02] MEDS: valACYclovir HCL 500 MG TABLET 1000 MG PO (09:39)
[2021-11-02] MEDS: ATORVASTATIN 40 MG TABLET PO (09:39)
[2021-11-02] MEDS: GABAPENTIN 300 MG CAPSULE PO ×3 (09:39→16:44)
[2021-11-02] MEDS: AMITRIPTYLINE HCL 25 MG TABLET PO (09:39)
[2021-11-02] MEDS: TAMSULOSIN HCL 0.4 MG CAPSULE PO (09:39)
[2021-11-02] MEDS: PANTOPRAZOLE 40 MG TABLET PO (09:39)
[2021-11-02] MEDS: carvediloL 12.5 MG TABLET PO (09:39)
[2021-11-02] MEDS: FINASTERIDE 5 MG TABLET PO (09:39)
[2021-11-02] MEDS: FUROSEMIDE 40 MG TABLET PO (09:39)
[2021-11-02] MEDS: INSULIN ASPART (*BKC) 100 UNITS/ML SUB-Q ×3 (09:42→16:44)
--- NOTE | 2021-11-02 10:36 | PM.PNNEP ---
Progress Note: A&P Additional Plan 1. Gui has end-stage renal disease. He has dialysis on Tuesdays and Saturdays. he is back on schedule for dialysis. Will get his next treatment tomorrow 2. The patient has diverticulitis. He is getting antibiotics for this. He seems to be improving clinically. 3. The patient has a past history of hypertension. Systolic ranging from 96-104 4. Patient has anemia. Hemoglobin is now target at 10.3. 5. The patient has renal osteodystrophy. Phosphorus level is good. 6. The patient has diabetes. His sugar was 641 on admission And this is down gradually. Management per hospitalist. 7. Sodium level is low. This is likely due to the high sugar. It corrects to normal when accounting for the sugar. Subjective Date/time seen: 11/02/21 10:36 Interval history: patient feels about the same. his belly pain is better. Still is 7/10 however. Ten being his admission pain. ?I want a cup of coffee ? He is tolerating clear liquids p.o. changing to full liquids today. he is on dialysis and tolerating well. He was seen at 2:25 p.m. Exam Narrative: WDWN in NAD skin no rash or subcu nodules head ncat lungs clear bilaterally cor reg no rub abd BS+ but hypoactive. Mild left lower quadrant tenderness. ext no edema. Objective Data Vital Signs Vital Signs: Vital Signs - 24 hr 11/01/21 12:00 11/01/21 10:37 11/01/21 13:00 Temperature 36.7 C Pulse Rate 65 16 L 64 Respiratory Rate 16 Blood Pressure 105/52 L 100/52 L 105/64 Pulse Oximetry Oxygen Delivery 11/01/21 13:20 11/01/21 13:40 11/01/21 14:00 Temperature Pulse Rate 80 63 65 Respiratory Rate Blood Pressure 99/62 L 110/57 L 100/56 L Pulse Oximetry Oxygen Delivery 11/01/21 14:20 11/01/21 12:20 11/01/21 11:40 Temperature Pulse Rate 79 85 64 Respiratory Rate Blood Pressure 103/60 119/95 H 116/71 Pulse Oximetry Oxygen Delivery 11/01/21 10:50 11/01/21 12:40 11/01/21 11:00 Temperature Pulse Rate 74 64 64 Respiratory Rate Blood Pressure 100/58 L 105/61 113/54 L Pulse Oximetry Oxygen Delivery 11/01/21 11:20 11/01/21 12:00 11/01/21 14:25 Temperature Pulse Rate 67 65 81 Respiratory Rate Blood Pressure 109/52 L 98/81 L Pulse Oximetry Oxygen Delivery 11/01/21 16:00 11/01/21 14:20 11/01/21 14:47 Temperature 36.6 C Pulse Rate 76 79 64 Respiratory Rate 16 Blood Pressure 103/60 104/54 L Pulse Oximetry Oxygen Delivery 11/01/21 14:25 11/01/21 20:20 11/01/21 20:36 Temperature 36.4 C L Pulse Rate 81 64 67 Respiratory Rate 14 Blood Pressure 98/81 L 96/48 L Pulse Oximetry 95 Oxygen Delivery 11/01/21 20:00 11/01/21 20:00 11/02/21 00:00 Temperature Pulse Rate 64 60 Respiratory Rate Blood Pressure Pulse Oximetry Oxygen Delivery Room Air 11/02/21 04:00 11/02/21 05:56 11/02/21 08:00 Temperature 36.3 C L Pulse Rate 63 67 Respiratory Rate 16 Blood Pressure 101/50 L Pulse Oximetry 94 Oxygen Delivery Room Air Intake/Output Intake/Output: Intake & Output 10/30/21 10/31/21 11/01/21 11/02/21 23:59 23:59 23:59 23:59 Intake Total 850 1070 820 240 Output Total 4000 2000 Balance 987 -9077 -1484 240 Meds/Results Medications: Active Medications Generic Name Dose Route Start Last Admin Trade Name Freq PRN Reason Stop Dose Admin Hydrocodone Bitart/Acetaminophen 5 tab 10/29/21 17:40 11/01/21 09:28 Hydrocodone/Acetaminophen (*Crx) 5-325 Mg Tablet PO 1 tab Q6H PRN Administration Pain Amitriptyline HCl 25 mg 10/30/21 09:00 11/02/21 09:39 Amitriptyline Hcl 25 Mg Tablet PO 25 mg DAILY YOKASTA Administration Atorvastatin Calcium 40 mg 10/30/21 09:00 11/02/21 09:39 Atorvastatin 40 Mg Tablet PO 40 mg DAILY YOKASTA Administration Carvedilol 12.5 mg 10/29/21 21:00 11/02/21 09:39 Carvedilol 12.5 Mg Tablet PO 12.5
[2021-11-02 11:29] LABS: Glucose Point of Care 359 mg/dl (65-105)
--- NOTE | 2021-11-02 14:13 | PM.IMPN ---
Progress Note: A&P Assessment and Plan (1) Diverticulitis: Code(s): K57.92 - Diverticulitis of intestine, part unspecified, without perforation or abscess without bleeding Status: Acute Assessment and Plan: patient is 71-year-old male with history of end-stage renal disease on hemodialysis Sunday and Sunday and insulin-dependent diabetes patient presented emergency department with complaint left lower quadrant pain suspicious of diverticulitis patient had a CT scan of abdomen does show patient has mild thickening of the sigmoid colon with possible subtle surrounding inflammation, although this is difficult to evaluate due to mesenteric edema. Findings suspicious for diverticulitis. Cannot exclude underlying malignancy, particularly in view of the lumbar vertebral abnormalities. Recommend GI consultation. started the patient on Zosyn and consulted GI, upon arrival patient blood sugar was 600 patient is a poor historian, patient also had a similar presentation during his admission in May his blood sugar was 600 he was given NovoLog 10 units however patient blood dropped and 50s, I have placed the patient on low sliding scale and will continue to monitor, Dr. Johnson is been consulted as patient missed the dialysis today, will continue to monitor and further recommendation to follow. 10/30/2021 interval history: today patient states abdominal pain is better and he is tolerating his renal diet denies any nausea or vomiting fever or chills, patient seen by GI agrees with the plan recommended patient will need colonoscopy in 4 weeks, patient did drop his blood sugar this morning and was treated, will continue to monitor patient with sliding scale, patient seen by heavy repairer patient normally gets dialysis on Sunday and Sunday, patient missed the dialysis last Sunday schedule to have dialysis tomorrow. 10/31/2021 interval history: today patient states abdominal pain is better and he is tolerating his clear liquid denies any nausea or vomiting fever or chills, patient seen by GI agrees with the plan, recommended patient will need colonoscopy in 4 weeks, patient his blood sugar this morning close to normal and was treated, will continue to monitor patient with sliding scale, patient seen by heavy repairer patient normally gets dialysis on Sunday and Sunday, patient missed the dialysis last Sunday schedule to have dialysis later today will continue to monitor will masses diet as tolerated. 11/01/2021 interval history: patient states abdominal pain is better and he was tolerating his clear liquid denies any nausea or vomiting fever or chills, patient seen by GI agrees with the plan, however patient was insistent to advance diet patient was placed on clear liquid and symptoms worsen abdominal pain and nausea, patient is now has agreed to go back on clear liquid will continue to monitor, GI recommended patient will need colonoscopy in 4 weeks, patient his blood sugar this morning close to normal and was treated, will continue to monitor patient with sliding scale, patient seen by heavy repairer patient normally gets dialysis on Sunday and Sunday, patient missed the dialysis last Sunday patient had dialysis yesterday and again schedule to have dialysis later today will continue to monitor will advance diet as tolerated. 11/02/2021 interval history: patient states abdominal pain is better and he was tolerating his clear liquid denies any nausea or vomiting fever or chills, patient seen by GI agrees with the plan, however patient was insistent to advance diet patient was placed on full liquids and symptoms worsen abdominal pain and nausea, on 11/03 patient had agreed to go back on clear liquid, today patient symptoms are better denies any abdominal pain nausea or vomiting is able to tolerate clear liquid will advanced to full liquid and monitor, patient lost his IV stop the Bouchrasyn started the claraen
[2021-11-02 16:46] LABS: Glucose Point of Care 252 mg/dl (65-105)
[2021-11-02] MEDS: CIPROFLOXACIN 500 MG TAB PO (20:02)
[2021-11-02 20:47] LABS: Glucose Point of Care 358 mg/dl (65-105)
[2021-11-02] MEDS: SODIUM CHLORIDE 0.9% IV 500 ML IV CONT (21:00)
[2021-11-03] VITALS (18 sets, daily range): BP systolic 91–119; BP diastolic 41–66; PULSE 61–78; RESP 16–18; TEMP 36.4–37; O2SAT 91–97
[2021-11-03 06:12] LABS: Glucose Point of Care 271 mg/dl (65-105)
[2021-11-03 07:39] LABS: Glucose Point of Care 277 mg/dl (65-105)
--- NOTE | 2021-11-03 08:56 | PC.NURSE ---
Patient transferred to Dialysis at 0881
[2021-11-03 09:23] LABS: Hematocrit 34.3 % (42.0-52.0); Hemoglobin 10.6 g/dL (14.0-18.0); Mean Corpuscular HGB Conc 30.9 g/dl (32-36); Mean Corpuscular Hemoglobin 30.6 pg (26-34); Mean Corpuscular Volume 99.1 fl (80-100); Mean Platelet Volume 10.9 fl (7.4-10.4); Platelet Count Result 166 k/mm3 (150-375); Red Blood Count 3.46 M/mm3 (4.6-6.20); Red Cell Distribution Width 15.7 % (11.5-14.5); White Blood Count 3.4 K/mm3 (4.5-10.0)
[2021-11-03 09:35] LABS: Anion Gap 8 mmol/L (8-16); Blood Urea Nitrogen 23 mg/dL (9-20); Calcium 6.8 mg/dL (8.4-10.2); Carbon Dioxide 28 mmol/L (22-30); Chloride 93 mmol/L (98-107); Estimated CRCL calculation 12 ml/min; Estimated Glomerular Filt Rate 13; Glucose 348 mg/dL (65-110); Phosphorus 5.4 mg/dL (2.5-4.5); Potassium 3.8 mmol/L (3.4-5.0); Sodium 129 mmol/L (137-145)
--- NOTE | 2021-11-03 09:57 | PCPTNOTE ---
Attempted to see patient for PT, however patient out of room for Dialysis.
--- NOTE | 2021-11-03 10:14 | PM.PNNEP ---
Progress Note: A&P Additional Plan 1. Gui has end-stage renal disease. He has dialysis on Tuesdays and Saturdays. he is back on schedule for dialysis. he is getting his dialysis treatment now. 2. The patient has diverticulitis. He is getting antibiotics for this. He seems to be improving clinically. He is a well with full liquids yesterday. 3. The patient has a past history of hypertension. Systolic ranging from 96-104 Will reduce carvedilol to 6.25. 4. Patient has anemia. Hemoglobin is now target at 10.3. 5. The patient has renal osteodystrophy. Phosphorus level is good. 6. The patient has diabetes. Sugars running in the 200s. And this is down gradually. Management per hospitalist. 7. Sodium level is low. This is likely due to the high sugar And also a component of water drinking. It corrects to normal when accounting for the sugar. Subjective Date/time seen: 11/03/21 10:14 Interval history: Patient is on dialysis. He is tolerating this well. His blood pressure is under good control. He was seen at 9:30 a.m. he did okay with a full liquid diet yesterday. Exam Narrative: WDWN in NAD skin no rash or subcu nodules head ncat lungs clear to auscultation cor reg no rub abd BS+ but hypoactive. Mild left lower quadrant tenderness. ext no edema or cyanosis Objective Data Vital Signs Vital Signs: Vital Signs - 24 hr 11/02/21 12:00 11/02/21 14:00 11/02/21 16:00 Temperature 36.6 C Pulse Rate 68 66 65 Respiratory Rate 16 Blood Pressure 97/53 L Pulse Oximetry 91 Oxygen Delivery 11/02/21 20:03 11/02/21 20:00 11/02/21 20:00 Temperature 36.3 C L Pulse Rate 72 64 Respiratory Rate 18 Blood Pressure 91/47 L Pulse Oximetry 92 Oxygen Delivery Room Air 11/02/21 22:40 11/03/21 00:00 11/03/21 04:00 Temperature Pulse Rate 61 62 Respiratory Rate Blood Pressure 98/52 L Pulse Oximetry Oxygen Delivery 11/03/21 06:02 11/03/21 09:05 11/03/21 09:05 Temperature 36.5 C 36.4 C Pulse Rate 63 68 68 Respiratory Rate 18 18 Blood Pressure 101/48 L 106/62 110/58 L Pulse Oximetry 91 Oxygen Delivery 11/03/21 09:20 11/03/21 09:44 Temperature Pulse Rate 68 77 Respiratory Rate Blood Pressure 91/54 L 116/62 Pulse Oximetry Oxygen Delivery Intake/Output Intake/Output: Intake & Output 10/31/21 11/01/21 11/02/21 11/03/21 23:59 23:59 23:59 23:59 Intake Total 0367 516 5254 1010 Output Total 4000 2000 Balance -2930 -1180 1200 1010 Meds/Results Medications: Active Medications Generic Name Dose Route Start Last Admin Trade Name Freq PRN Reason Stop Dose Admin Hydrocodone Bitart/Acetaminophen 5 tab 10/29/21 17:40 11/01/21 09:28 Hydrocodone/Acetaminophen (*Crx) 5-325 Mg Tablet PO 1 tab Q6H PRN Administration Pain Amitriptyline HCl 25 mg 10/30/21 09:00 11/02/21 09:39 Amitriptyline Hcl 25 Mg Tablet PO 25 mg DAILY YOKASTA Administration Atorvastatin Calcium 40 mg 10/30/21 09:00 11/02/21 09:39 Atorvastatin 40 Mg Tablet PO 40 mg DAILY YOKASTA Administration Carvedilol 12.5 mg 10/29/21 21:00 11/02/21 20:08 Carvedilol 12.5 Mg Tablet PO Not Given Q12HR YOKASTA Ciprofloxacin 500 mg 11/01/21 21:00 11/02/21 20:02 Ciprofloxacin 500 Mg Tab PO 500 mg HS YOKASTA Administration Dextrose 12.5 gm 10/29/21 17:47 Dextrose 50% 25 Gm/50 Ml Syringe IV PUSH PRN PRN Hypoglycemia Protocol Epoetin Jonathan-epbx 10,000 units 11/01/21 15:47 11/01/21 17:57 Epoetin Jonathan-Epbx 10,000 Units/Ml Vial IV PUSH Not Given TUTHSA YOKASTA Finasteride 5 mg 10/30/21 09:00 11/02/21 09:39 Finasteride 5 Mg Tablet PO 5 mg DAILY YOKASTA Administration Furosemide 40 mg 10/30/21 09:00 11/02/21 09:39 Furosemide 40 Mg Tablet PO 40 mg DAILY YOKASTA Administration Gabapentin 300 mg 10/30/21 09:00 11/02/21 16:44 Gabapentin 300 Mg Capsule PO 300 mg
--- NOTE | 2021-11-03 10:42 | PCOTNOTE ---
Attempted to see pt for occupational therapy evaluation. Pt. is away from room at dialysis. Will follow up.
[2021-11-03 13:24] LABS: Glucose Point of Care 179 mg/dl (65-105)
[2021-11-03] MEDS: GABAPENTIN 300 MG CAPSULE PO (14:17)
[2021-11-03] MEDS: FINASTERIDE 5 MG TABLET PO (14:18)
[2021-11-03] MEDS: TAMSULOSIN HCL 0.4 MG CAPSULE PO (14:18)
[2021-11-03] MEDS: MIDODRINE HCL 2.5 MG TABLET 5 MG PO (14:18)
[2021-11-03] MEDS: AMITRIPTYLINE HCL 25 MG TABLET PO (14:18)
[2021-11-03] MEDS: FUROSEMIDE 40 MG TABLET PO (14:18)
[2021-11-03] MEDS: valACYclovir HCL 500 MG TABLET 1000 MG PO (14:18)
[2021-11-03] MEDS: PANTOPRAZOLE 40 MG TABLET PO (14:19)
[2021-11-03] MEDS: ATORVASTATIN 40 MG TABLET PO (14:19)
--- NOTE | 2021-11-03 14:37 | PCPTNOTE ---
Attempted to see patient for PT, however unable due to OT in room working with patient.
--- NOTE | 2021-11-03 15:03 | PM.DS ---
DS: Admitting Diagnosis Discharge Date 11/03/2021 Admitting Diagnosis abdominal pain, hyperglycemia DS: Discharge Diagnosis Discharge Diagnosis (1) Diverticulitis: Code(s): K57.92 - Diverticulitis of intestine, part unspecified, without perforation or abscess without bleeding Status: Acute Assessment and Plan: patient is 71-year-old male with history of end-stage renal disease on hemodialysis Sunday and Sunday and insulin-dependent diabetes patient presented emergency department with complaint left lower quadrant pain suspicious of diverticulitis patient had a CT scan of abdomen does show patient has mild thickening of the sigmoid colon with possible subtle surrounding inflammation, although this is difficult to evaluate due to mesenteric edema. Findings suspicious for diverticulitis. Cannot exclude underlying malignancy, particularly in view of the lumbar vertebral abnormalities. Recommend GI consultation. started the patient on Zosyn and consulted GI, upon arrival patient blood sugar was 600 patient is a poor historian, patient also had a similar presentation during his admission in May his blood sugar was 600 he was given NovoLog 10 units however patient blood dropped and 50s, I have placed the patient on low sliding scale and will continue to monitor, Dr. Johnson is been consulted as patient missed the dialysis today, will continue to monitor and further recommendation to follow. 10/30/2021 interval history: today patient states abdominal pain is better and he is tolerating his renal diet denies any nausea or vomiting fever or chills, patient seen by GI agrees with the plan recommended patient will need colonoscopy in 4 weeks, patient did drop his blood sugar this morning and was treated, will continue to monitor patient with sliding scale, patient seen by director of purchasing patient normally gets dialysis on Sunday and Sunday, patient missed the dialysis last Sunday schedule to have dialysis tomorrow. 10/31/2021 interval history: today patient states abdominal pain is better and he is tolerating his clear liquid denies any nausea or vomiting fever or chills, patient seen by GI agrees with the plan, recommended patient will need colonoscopy in 4 weeks, patient his blood sugar this morning close to normal and was treated, will continue to monitor patient with sliding scale, patient seen by director of purchasing patient normally gets dialysis on Sunday and Sunday, patient missed the dialysis last Sunday schedule to have dialysis later today will continue to monitor will masses diet as tolerated. 11/01/2021 interval history: patient states abdominal pain is better and he was tolerating his clear liquid denies any nausea or vomiting fever or chills, patient seen by GI agrees with the plan, however patient was insistent to advance diet patient was placed on clear liquid and symptoms worsen abdominal pain and nausea, patient is now has agreed to go back on clear liquid will continue to monitor, GI recommended patient will need colonoscopy in 4 weeks, patient his blood sugar this morning close to normal and was treated, will continue to monitor patient with sliding scale, patient seen by director of purchasing patient normally gets dialysis on Sunday and Sunday, patient missed the dialysis last Sunday patient had dialysis yesterday and again schedule to have dialysis later today will continue to monitor will advance diet as tolerated. 11/02/2021 interval history: patient states abdominal pain is better and he was tolerating his clear liquid denies any nausea or vomiting fever or chills, patient seen by GI agrees with the plan, however patient was insistent to advance diet patient was placed on full liquids and symptoms worsen abdominal pain and nausea, on 11/03 patient had agreed to go back on clear liquid, today patient symptoms are better denies any abdominal pain nausea or vomiting is able to tolera
--- NOTE | 2021-11-03 15:08 | PCPTNOTE ---
Attempted to see patient for PT, however patient declined.
[2021-11-03 16:50] LABS: Glucose Point of Care 240 mg/dl (65-105)
[2021-11-03 16:53] LABS: EDCOVIDSCREEN Negative (Negative)
== END 2021-11-03 17:40 | DRG 391 ==
LOC: ANHED 12:23 → ANH3MED 12:50
PROVIDERS: Internal Medicine Nephrology; Student in an Organized Health Care Education/Training Program; Admitting Provider Family Medicine; Emergency Provider Emergency Medicine; PCP Internal Medicine; Visit Provider Family Medicine
DX: K57.92 Diverticulitis of intestine, part unspecified, without perforation or abscess without bleeding (principal); N18.6 End stage renal disease; I12.0 Hypertensive chronic kidney disease with stage 5 chronic kidney disease or end stage renal disease; E11.22 Type 2 diabetes mellitus with diabetic chronic kidney disease; E11.65 Type 2 diabetes mellitus with hyperglycemia; Z20.822 Contact with and (suspected) exposure to COVID-19; N25.0 Renal osteodystrophy; N40.0 Benign prostatic hyperplasia without lower urinary tract symptoms; E78.5 Hyperlipidemia, unspecified; D63.1 Anemia in chronic kidney disease; G89.29 Other chronic pain; Z99.2 Dependence on renal dialysis; Z90.49 Acquired absence of other specified parts of digestive tract; Z87.891 Personal history of nicotine dependence; Z79.4 Long term (current) use of insulin
CPT/HCPCS: 36415; 36600; 71045; 74176; 80053; 80069; 81001; 82803; 82948; 83036; 83735; 85025; 85027; 85055; 86706; 87086; 87088; 87340; 87426; 93005; 96365; 96366; 96367; 96372; 96375; 97162; 97165; 99285; A9270; C9803; G0257; G0378; J0295; J1644; J1815; J2405; J2543; J7030; J7040